=== PATIENT | female | born 1960 | race Caucasian/White ===

== ENCOUNTER 2019-05-15 11:09 | Emergency (ER) | payer BC ==
--- OUTSIDE RECORDS SUMMARY | 2019-05-15 11:11 | XMS REPORT | Clinical Summary ---
:1960 Author Organization [facility] Address [address] [place] [address] Care Team Providers Name Role Phone Adamaris Sr MD Primary Care Provider Allergies No Known Allergies Medications Medication Sig Dispensed Refills Start Date End Date Status EFFEXOR XR 75 mg 24 hr 150 mg. 0 02/11/2016 Active capsule omeprazole (PriLOSEC) 40 0 02/11/2016 Active MG capsule JANUMET 50-1,000 mg per 0 04/18/2016 Active tablet cyanocobalamin 1000 MCG Take 1,000 mcg 0 Active tablet by mouth daily. vitamin E 400 UNIT Take 400 Units 0 Active capsule by mouth daily. cholecalciferol, vitamin Take 2,000 0 Active D3, (VITAMIN D3) 2,000 Units by mouth unit capsule capsule daily. cinnamon bark 500 mg Take by mouth 0 Active capsule daily. fenofibrate micronized Take 130 mg by 0 Active (ANTARA) 130 MG capsule mouth once. gabapentin (NEURONTIN) 0 08/27/2016 Active 100 mg capsule atorvastatin (LIPITOR) 10 0 10/30/2016 Active MG tablet aspirin (ECOTRIN) 81 MG Take 81 mg by 0 Active enteric coated tablet mouth. venlafaxine XR Take 150 mg by 0 Active (EFFEXOR-XR) 150 MG 24 hr mouth. capsule [id number] Take by mouth. 0 Active [facility] Hospital, Clinic, or Other Ordered Dose Route Frequency Start Date End Date Status Facility Administered Medication sodium hyaluronate (viscosup) 30 mg IAtc once 01/03/2018 Active (ORTHOVISC) injection 30 mgIndications: Primary osteoarthritis of both knees sodium hyaluronate (viscosup) 30 mg IAtc once 10/17/2018 Active (ORTHOVISC) injection 30 mgIndications: Primary osteoarthritis of both knees Active Problems Problem Noted Date DDD (degenerative disc disease), lumbar 05/25/2017 Chronic bilateral low back pain with bilateral sciatica 05/25/2017 Primary osteoarthritis of both knees 02/12/2017 Bilateral hip pain 12/21/2016 Sacroiliac joint pain 12/21/2016 Knee pain, right 06/26/2016 Left knee pain 06/26/2016 Primary localized osteoarthrosis of right lower leg 06/26/2016 Tear of medial meniscus of left knee, current 06/26/2016 Bilateral carpal tunnel syndrome 05/05/2016 Carpal tunnel syndrome on right 05/05/2016 Carpal tunnel syndrome, left 05/05/2016 Encounters Date Type Specialty Care Team Description 11/14/2018 Office Visit Orthopedic Surgery [facility], Primary osteoarthritis of MD both knees (Primary Dx) 11/07/2018 Office Visit Orthopedic Surgery [facility], Primary osteoarthritis of MD both knees (Primary Dx) 10/27/2018 Office Visit Orthopedic Surgery [facility], Primary osteoarthritis of MD both knees (Primary Dx) 10/17/2018 Office Visit Orthopedic Surgery [facility], Primary osteoarthritis of MD both knees (Primary Dx) after 05/14/2018 Family History Medical History Relation Name Comments Cancer Father Diabetes Mother Diabetes Sister Relation Name Status Comments Father Mother Sister Social History Tobacco Use Types Packs/Day Years Used Date Light Tobacco Smoker 0 Smokeless Tobacco: Never Used Comments: one pack a week Alcohol Use Drinks/Week oz/Week Comments Yes 2 Glasses of wine 2.0 Sex Assigned at Date Recorded Not on file Job Start Date Occupation Industry Not on file Not on file Not on file Travel History Travel Start Travel End No recent travel history available. Last Filed Vital Signs Vital Sign Reading Time Taken Comments Blood Pressure - - Pulse - - Temperature - - Respiratory Rate - - Oxygen Saturation - - Inhaled Oxygen Concentration - - Weight 81.2 kg (179 lb) 10/27/2018 1:30 PM [employer] Height 172.7 cm (5' 8") 10/27/2018 1:30 PM [employer] Body Mass Index 27.22 10/27/2018 1:30 PM [employer] DES[employer] Plan of Treatment Health Maintenance Due Date Last Done Comments CERVICAL CANCER SCREENING 1981 BREAST CANCER SCREENING 2010 COLONOSCOPY SCREENING 2010 SHINGLES VACCINES (#1) 2010 INFLUENZA VACCINE 03/23/2019 06/30/2017 Procedures Procedure Name Priority Date/Time Associated Diagnosis Comments OK ARTHROCENTESIS Routine 11/14/2018 8:20 Primary Results for this ASPIR&/INJ MAJOR AM CDT osteoarthritis of procedure are in JT/BURSA W/O US both knees the results section. OK ARTHROCENTESIS Routine 11/07/2018 10:50 Primary Results for this ASPIR&/INJ MAJOR AM CDT osteoarthritis of procedure are in JT/BURSA W/O US both knees the results section. 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 after 05/14/2018 Results Large Joint Arthrocentesis: knee, Bilateral knee (11/14/2018 8:20 AM CDT) Narrative Performed At [facility] MD 11/14/20188:45 AM Large Joint Arthrocentesis: knee, Bilateral knee Supporting Documentation Indications: pain Procedure Details Location: knee - Bilateral knee Right side: Approach: lateral Right knee medications administered: 2 mL lidocaine 10 mg/mL (1 %); 2 mL sodium hyaluronate (viscosup) 30 mg/2 mL Left side: Approach: lateral Left knee medications administered: 2 mL lidocaine 10 mg/mL (1 %); 2 mL sodium hyaluronate (viscosup) 30 mg/2 mL (The patient will apply ice to the injected area today and use OTC meds as needed for injection pain. We discussed potential risks to include infection, pain, ineffectuality, fat atrophy, skin pigmentation loss, and need for more treatment.) Large Joint Arthrocentesis: knee, Bilateral knee (11/07/2018 10:50 AM CDT) Narrative Performed At [facility] MD 11/07/2018 10:44 AM Large Joint Arthrocentesis: knee, Bilateral knee Supporting Documentation Indications: pain Procedure Details Location: knee - Bilateral knee Right side: Approach: lateral Right knee medications administered: 2 mL lidocaine 10 mg/mL (1 %); 2 mL sodium hyaluronate (viscosup) 30 mg/2 mL Left side: Approach: lateral Left knee medications administered: 2 mL lidocaine 10 mg/mL (1 %); 2 mL sodium hyaluronate (viscosup) 30 mg/2 mL (The patient will apply ice to the injected area today and use OTC meds as needed for injection pain. 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
--- OUTSIDE RECORDS SUMMARY | 2019-05-15 11:11 | XMS REPORT | Clinical Summary ---
:1960 Author Organization [facility] Address [address] [place] [address] Care Team Providers Name Role Phone Adamaris Muniz Primary Care Provider Unavailable Allergies No Known Allergies Medications Medication Sig Dispensed Refills Start Date End Date Status aspirin 81 MG EC tablet Take 81 mg by 0 Active mouth daily. fenofibrate micronized Take 130 mg by 0 Active (ANTARA) 130 MG capsule mouth every morning before breakfast. atorvastatin (LIPITOR) 0 08/11/2013 Active 10 MG tablet omeprazole (PRILOSEC) 0 08/11/2013 Active 40 MG capsule SITagliptin-metFORMIN 0 04/18/2016 Active (JANUMET) 50-1,000 mg per tablet [id number] Take by mouth. 0 Active [facility] Active Problems Not on file Social History Tobacco Use Types Packs/Day Years Used Date Current Some Day Smoker Tobacco Cessation: Ready to Quit: No Alcohol Use Drinks/Week oz/Week Comments Yes Sex Assigned at Date Recorded Not on file Job Start Date Occupation Industry Not on file Not on file Not on file Travel History Travel Start Travel End No recent travel history available. Last Filed Vital Signs Not on file Plan of Treatment Not on file Results Not on fileafter 05/14/2018 Insurance Payer Benefit Plan / Subscriber ID Type Phone Address Group [employer]UE [employer] xxxxxxxxxxxx PPO [phone] [address] [employer]PP[place] [address]
--- OUTSIDE RECORDS SUMMARY | 2019-05-15 11:12 | XMS REPORT | Continuity of Care Document ---
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 019 9 [place] Transient Cerebral Problem [facility] Ischemia 017 9 Family Practice NUMBNESS Active [facility] 017 Alligator STROKE-LIKE SYMPTOMS Active [facility] 017 Alligator Diabetic Renal Disease Problem [facility] 017 9 Family Practice Mixed Anxiety and Problem [facility] Depressive Disorder 017 9 Family Practice Hypertensive Renal Problem [facility] Disease 017 9 Family Practice Gastroesophageal Problem [facility] Reflux Disease without 017 9 Family Esophagitis Practice Chronic Kidney Disease Problem [facility] Stage 3 017 9 Family Practice Mixed Hyperlipidemia Problem [facility] Due to Type 2 Diabetes 017 9 Family Mellitus Practice K57.30 - DVRTCLOS OF Active OPID LG INT W/O PERFORA 016 [place] Anxiety Resolved Problem 015 9 Maura,M H TIRR,MH OPID [place] Diabetes Resolved Problem MH 015 9 MauraM H TIRR,MH OPID [place] Hypertension Resolved Problem MH 015 9 MauraM H TIRR, OPID [place] Anxiety (finding) Resolved Problem MH OPID 015 9 [place] Diabetes mellitus Resolved Problem MH OPID (disorder) 015 9 [place] Hypertensive disorder, Resolved Problem MH OPID systemic arterial 015 9 [place] (disorder) [id number] Active Problem Data MH 015 9 migrated Chip Lorenzo from GE H TIRR,MH Centricity OPID on 04/13/15. [place] Fatigue (finding) Active Problem Data MH OPID 015 9 migrated Maura from GE [employer] on 04/13/15. Abdominal pain1 Resolved Problem Data MH 014 9 migrated Chip Lorenzo from GE H TIRR,MH Centricity OPID on 01/22/15. [place] Gastroesophageal Active Problem Data migrated from GE Centricity on 02/27/15. reflux [id number], 15 014 9 Data migrated from GE Centricity on 01/22/15. Chip Lorenzo H TIRR,MH OPID [place] Abdominal pain Resolved Problem Data OPID (finding) 014 9 migrated [place] from GE [employer] on 01/22/15. Gastroesophageal Active Problem Data migrated from GE Centricity on 02/27/15. OPID reflux disease 014 9 Data migrated from GE Centricity on 01/22/15. [place] (disorder) Neurologic disorder Active Problem Data migrated from GE Centricity on 02/27/15. MH associated with type 2 013 9 Data migrated from GE Centricity on . Chip Lorenzo diabetes , H TIRR,MH 24 OPID [place] Neurologic disorder Active Problem Data migrated from GE Centricity on 02/27/15. OPID associated with type 013 9 Data migrated from GE Centricity on 01/22/15. [place] II diabetes mellitus (disorder) Vitamin D Active Problem Data migrated from GE Centricity on 02/27/15. [id number], 38 013 9 Data migrated from GE Centricity on 01/22/15. Chip Lorenzo H TIRR,MH OPID [place] Vitamin D deficiency Active Problem Data migrated from GE Centricity on 02/27/15. OPID (disorder) 013 9 Data migrated from GE Centricity on 01/22/15. [place] Postmenopausal Active Problem Data migrated from GE Centricity on 02/27/15. state29, 30 013 9 Data migrated from GE Centricity on 01/22/15. Chip Lorenzo H TIRR,MH OPID [place] Postmenopausal state Active Problem Data migrated from GE Centricity on 02/27/15. OPID (finding) 013 9 Data migrated from GE Centricity on 01/22/15. [place] Physical examination Resolved Problem Data [id number] 013 9 migrated Chip Lorenzo from GE H TIRR, Centricity OPID on 02/27/15. [place] Physical examination Resolved Problem Data OPID procedure (procedure) 013 9 migrated Maura from GE Cent[employer]ity on 02/27/15. Allergic rhinitis2, 3, Active Problem Data migrated from GE Centricity on 02/27/15. 4 012 9 Data migrated from GE Centricity on 02/27/15. MauraChip Data migrated from GE Centricity on 01/22/15. H TIRR,MH OPID [place] Dysfunction of Resolved Problem Data eustachian tube12 012 9 migrated Chip Lorenzo from GE H TIRR,MH Centricity OPID on 03/09/15. [place] Xsjudc52, 35 Active Problem Data migrated from GE Centricity on 02/27/15. MH 012 9 Data migrated from GE Centricity on 01/22/15. Chip Lorenzo H TIRR,MH OPID [place] Allergic rhinitis Active Problem Data migrated from GE Centricity on 02/27/15. OPID (disorder) 012 9 Data migrated from GE Centricity on 02/27/15. [place] Data migrated from GE Centricity on 01/22/15. Dysfunction of Resolved Problem Data OPID eustachian tube 012 9 migrated [place] (disorder) from GE Centricity on 03/09/15. Smoker (finding) Active Problem Data migrated from GE Centricity on 02/27/15. MH OPID 012 9 Data migrated from GE Centricity on 01/22/15. [place] Urinary tract Resolved Problem Data infectious [id number] 012 9 migrated MauraM from GE H TIRR, Centricity OPID on 03/08/15. [place] Urinary tract Resolved Problem Data OPID infectious disease 012 9 migrated [place] (disorder) from GE Centricity on 03/08/15. Diverticular Active Problem Data migrated from GE Centricity on 02/27/15. , 11 012 9 Data migrated from GE Centricity on 01/22/15. [place],M H TIRR, OPID [place] [id number] Resolved Problem Data MH 012 9 migrated Chip Lorenzo from GE H TIRR, Centricity OPID on 03/08/15. [place] Diverticular disease Active Problem Data migrated from GE Centricity on 02/27/15. OPID (disorder) 012 9 Data migrated from GE Centricity on 01/22/15. [place] Otalgia (disorder) Resolved Problem Data OPID 012 9 migrated [place] from GE Centricity on 03/08/15. Hip pain16 Active Problem Data MH 011 9 migrated Maura,M from GE H TIRR, Centricity OPID on 01/22/15. [place] Hip pain (finding) Active Problem Data OPID 011 9 migrated [place] from GE Cent[employer]ity on 01/22/15. Contact dermatitis due Resolved Problem Data MH to Genus 011 9 migrated Chip Lorenzo Toxicodendron6 from GE H TIRR,MH Centricity OPID on 02/27/15. [place] Contact dermatitis due Resolved Problem Data OPID to Genus Toxicodendron 011 9 migrated Maura (disorder) from GE Centricity on 02/27/15. Mixed anxiety and Active Problem Data migrated from GE Centricity on 02/27/15. depressive riezkckt00, 010 9 Data migrated from GE Centricity on . Chip Lorenzo 22 H TIRR,MH OPID [place] Mixed anxiety and Active Problem Data migrated from GE Centricity on 02/27/15. OPID depressive disorder 010 9 Data migrated from GE Centricity on 01/22/15. [place] (disorder) Breast neoplasm Active Problem Data OPID screening (procedure) 010 9 migrated Maura from GE Cent[employer]ity on 02/27/15. Benign hypertensive Active Problem Data renal disease5 009 9 migrated Chip Lorenzo from GE H TIRR, Centricity OPID on 02/27/15. [place] Hypertensive [id number] Resolved Problem Data MH 009 9 migrated Chip Lorenzo from GE H TIRR, Centricity OPID on 01/22/15. [place] Yixizeofend89, 27 Active Problem Data migrated from GE Centricity on 02/27/15. MH 009 9 Data migrated from GE Centricity on 01/22/15. Chip Lorenzo H TIRR,MH OPID [place] Benign hypertensive Active Problem Data OPID renal disease 009 9 migrated Maura (disorder) from GE Centricity on 02/27/15. Hypertensive episode Resolved Problem Data OPID (disorder) 009 9 migrated Maura from GE Centricity on 01/22/15. Paresthesia (finding) Active Problem Data migrated from GE Centricity on 02/27/15. MH OPID 009 9 Data migrated from GE Centricity on 01/22/15. [place] History of clinical Active Problem Data MH finding in [id number] 009 9 migrated Chip Lorenzo from GE H TIRR,MH Centricity OPID on 02/27/15. [place] Idiocldgnee40, 32 Active Problem Data migrated from GE Centricity on 02/27/15. MH 009 9 Data migrated from GE Centricity on 01/22/15. Chip Lorenzo H TIRR,MH OPID [place] Past history of Active Problem Data MH OPID clinical finding 009 9 migrated [place] (context-dependent from GE category) Centricity on 02/27/15. Proteinuria (finding) Active Problem Data migrated from GE Centricity on 02/27/15. MH OPID 009 9 Data migrated from GE Centricity on 01/22/15. [place] Contact dermatitis due Resolved Problem Data MH to poison oak7 009 9 migrated Chip Lorenzo from GE H TIRR,MH Centricity OPID on 03/08/15. [place] Contact dermatitis due Resolved Problem Data OPID to poison-oak 009 9 migrated [place] (disorder) from GE Centricity on 03/08/15. Diabetic renal Active Problem Data MH disease9 009 9 migrated Chip Lorenzo from GE H TIRR,MH Centricity OPID on 01/22/15. [place] Diabetic renal disease Active Problem Data MH OPID (disorder) 009 9 migrated Maura from GE Centricity on 01/22/15. Depressive disorder8 Resolved Problem Data MH 009 9 migrated Chip Lorenzo from GE H TIRR,MH Centricity OPID on 01/22/15. [place] Depressive disorder Resolved Problem Data MH OPID (disorder) 009 9 migrated Maura from GE Centricity on 01/22/15. Fxsyzxxleqbtczrtsyea49 Resolved Problem Data migrated from GE Centricity on 02/27/15. , 20 009 9 Data migrated from GE Centricity on 01/22/15. Chip Lorenzo TIRR, OPID [place] Hypertriglyceridemia Resolved Problem Data migrated from GE Centricity on 02/27/15. OPID (disorder) 009 9 Data migrated from GE Centricity on 01/22/15. [place] [id number] Active TIRR 002 58523 X 2/46950 X Active TIRR 6/83802 X 5/96742 X 6 001 Hypercholesterolemia Active Problem 9 Chip Lorenzo TIRR, OPID [place] Calculus of OPID gallbladder without 9 [place] cholecystitis without obstruction Diverticulosis of OPID large intestine 9 [place] without perforation or abscess without bleeding Alcoholic fatty liver OPID 9 [place] Type 2 diabetes OPID mellitus without 9 [place] complications Essential (primary) OPID hypertension 9 [place] Overweight OPID 9 [place] Dietary counseling and OPID surveillance 9 [place] Family history of OPID malignant neoplasm of 9 [place] digestive organs Hypercholesterolemia Active Problem OPID (disorder) 9 [place] HIP PAIN, RIGHT Active [place] UNSPECIFIED SYMPTOMS Active [facility] SIGNS INVOLVING Alligator Medications Medication Details Route Status Patient Ordering Order Source Instructions Provider Date Effexor XR 150 mg, 2 No Longer cap, Route: Active 2016 [place] PO, Drug form: ERCAP, Daily, Dosing Weight 83.182, kg, Start date: 07/07/17 9:00:00 ROBOTICS SYSTEMS ENGINEER, Duration: 30 day, Stop date: 08/06/17 8:59:00 CSTNotes: Do not open, crush, or chew. (Same As: Effexor XR) Omeprazole 40 mg, Route: No Longer PO, Drug Active 2016 [place] form: DRC, Daily, Dosing Weight 83.182, kg, Start date: 07/07/17 9:00:00 ROBOTICS SYSTEMS ENGINEER, Duration: 30 day, Stop date: 08/06/17 8:59:00 ROBOTICS SYSTEMS ENGINEER atorvastatin 20 mg, Route: No Longer PO, Drug Active 2016 [place] form: TAB, Daily, Dosing Weight 83.182, kg, Start date: 07/07/17 9:00:00 ROBOTICS SYSTEMS ENGINEER, Duration: 30 day, Stop date: 08/06/17 8:59:00 ROBOTICS SYSTEMS ENGINEER gabapentin 100 MG 100 mg, 1 Inactive Oral Capsule cap, Route: 2017 [place] PO, Drug form: CAP, BID, Dosing Weight 83.182, kg, Start date: 07/06/17 17:00:00 ROBOTICS SYSTEMS ENGINEER, Duration: 30 day, Stop date: 08/05/17 16:59:00 CSTNotes: (Same as: Neurontin) Aspirin Enteric 81 mg=1 tab, Active Coated 81 mg oral PO, Daily, # 2017 [place] delayed release 30 tab, 0 tablet Refill(s) Protonix 40 mg, 1 tab, Inactive Route: PO, 2016 [place] Drug form: ECTAB, Daily, Start date: 07/06/17 10:00:00 ROBOTICS SYSTEMS ENGINEER, Duration: 30 day, Stop date: 08/05/17 9:00:00 CSTNotes: Tablet should not be chewed or crushed. (Same as: Protonix) Amlodipine 5 MG / 1 tab, Route: Inactive Hydrochlorothiazide PO, Drug 2017 [place] 12.5 MG / Olmesartan Form: TAB, medoxomil 40 MG Oral Dosing Weight Tablet [Tribenzor 83.182, kg, 40/5/12.5] Daily, Start date: 07/06/17 9:05:00 ROBOTICS SYSTEMS ENGINEER, Duration: 30 day, Stop date: 08/05/17 9:04:00 ROBOTICS SYSTEMS ENGINEER Aspirin 325 MG 325 mg, 1 Inactive Enteric Coated tab, Route: 2017 [place] Tablet PO, Drug form: ECTAB, Daily, Dosing Weight 84.3, kg, Start date: 07/06/17 9:00:00 ROBOTICS SYSTEMS ENGINEER, Duration: 30 day, Stop date: 08/05/17 8:59:00 CSTNotes: (Do Not Crush) Do not crush or chew. heparin 5,000 unit, 1 Inactive mL, Route: 2017 [place] SUB-Q, Drug form: INJ, Q8H, Dosing Weight 84.3, kg, (For patients weighing Notes: porcine heparin Insulin Lispro 4 unit, 0.04 No Longer mL, Route: Active 2016 [place] SUB-Q, Drug form: SOLN, Bedtime, Dosing Weight 83.182, kg, PRN Blood Glucose Results, Start date: 07/05/17 22:06:00 ROBOTICS SYSTEMS ENGINEER, Duration: 30 day, Stop date: 08/04/17 22:05:00 CSTNotes: Roll in palms of hands gently; Do not shake `vigorously. (Same as: Humalog ) "Single Patient Use Only " WASTE: F/P - Black; E - Municipal Trash Bin Stable for 28 days at room temperature. Expires in days from _Date Glucagon 1 mg, Route: No Longer IM, Drug Active 2016 [place] form: PDR/INJ, PRN, Dosing Weight 83.182, kg, PRN Blood Glucose Results, Start date: 07/05/17 21:41:00 ROBOTICS SYSTEMS ENGINEER, Duration: 30 day, Stop date: 08/04/17 21:40:00 ROBOTICS SYSTEMS ENGINEER Dextrose 50% Syringe 12.5 gm, 25 No Longer mL, Route: Active 2016 [place] IVP, Drug Form: INJ, Dosing Weight 83.182, kg, PRN, PRN Blood Glucose Results, Start date: 07/05/17 21:41:00 ROBOTICS SYSTEMS ENGINEER, Duration: 30 day, Stop date: 08/04/17 21:40:00 ROBOTICS SYSTEMS ENGINEER Insulin Lispro 5 unit, 0.05 No Longer mL, Route: Active 2016 [place] SUB-Q, Drug form: SOLN, TID-Before Meals, Dosing Weight 83.182, kg, PRN Blood Glucose Results, Start date: 07/05/17 21:41:00 ROBOTICS SYSTEMS ENGINEER, Duration: 30 day, Stop date: 08/04/17 21:40:00 CSTNotes: Roll in palms of hands gently; Do not shake `vigorously. (Same as: Humalog ) "Single Patient Use Only " WASTE: F/P - Black; E - Municipal Trash Bin Stable for 28 days at room temperature. Expires in days from _Date Saline Flush 0.9% 10 ml, Route: No Longer IVP, Drug Active 2016 [place] Form: INJ, Dosing Weight 84.3, kg, Q12H, Start date: 07/05/17 21:00:00 ROBOTICS SYSTEMS ENGINEER, Duration: 30 day, Stop date: 08/04/17 20:59:00 CSTNotes: (Same as: BD Posiflush) Docusate 100 mg, 1 No Longer cap, Route: Active 2016 [place] PO, Drug form: CAP, Q12H, Dosing Weight 84.3, kg, Start date: 07/05/17 21:00:00 ROBOTICS SYSTEMS ENGINEER, Duration: 30 day, Stop date: 08/04/17 20:59:00 CSTNotes: (Same as: Colace) (Do Not Crush) atorvastatin 80 mg, 2 tab, No Longer Route: PO, Active 2016 [place] Drug form: TAB, Bedtime, Dosing Weight 84.3, kg, Start date: 07/05/17 21:00:00 ROBOTICS SYSTEMS ENGINEER, Duration: 30 day, Stop date: 08/04/17 20:59:00 CSTNotes: (Same as: Lipitor) magnesium oxide 250 250 mg=1 tab, Active mg oral tablet PO, Daily, 0 2016 [place] Refill(s) gabapentin 100 MG 100 mg=1 cap, Active Oral Capsule PO, BID, # 90 2016 [place] cap, 1 Refill(s) Centrum Silver 1 tab, PO, Active Women's Daily, 0 2016 [place] Refill(s) atorvastatin 20 mg 20 mg=1 tab, Active oral tablet PO, Daily, 0 2017 [place] Refill(s) Saline Flush 0.9% 10 ml, Route: No Longer IVP, Drug Active 2016 [place] Form: INJ, Dosing Weight 84.3, kg, PRN, PRN Line Flush, Start date: 07/05/17 16:07:00 ROBOTICS SYSTEMS ENGINEER, Duration: 30 day, Stop date: 08/04/17 16:06:00 CSTNotes: (Same as: BD Posiflush) Ondansetron 4 mg, 2 mL, No Longer Route: IVP, Active 2016 [place] Drug form: INJ, Q8H, Dosing Weight 84.3, kg, PRN Nausea & Vomiting, Start date: 07/05/17 16:07:00 ROBOTICS SYSTEMS ENGINEER, Duration: 30 day, Stop date: 08/04/17 16:06:00 CSTNotes: (Same as: Ashley) MEDICATION WASTE Product Size: 4 mg Product Wasted: ___ mg Labetalol 10 mg, 2 mL, No Longer Route: IVP, Active 2016 [place] Drug form: INJ, Q10Min, Dosing Weight 84.3, kg, PRN Hypertension, For SBP > 180 mmHg and/or DBP > 105 mmHg, Priority: Routine, Start date: 07/05/17 16:07:00 ROBOTICS SYSTEMS ENGINEER, Duration: 30 day, Stop date: 08/04/17 16:06:00 CSTNotes: (Same as: Normodynpat Trandate) Push over 2 minutes Give bolus over 2-3 minutes. atorvastatin 20 MG atorvastatin Active [facility] Oral Tablet 20 mg tablet [facility] Take 1 tablet Practice every day by oral route. 24 HR venlafaxine Effexor XR [facility] 150 MG Extended 150 mg Family Release Oral Capsule capsule,exten Practice [Effexor] ded release 1 PO QDay 24 HR venlafaxine 75 Effexor XR 75 [facility] [place] MG Extended Release mg Family Oral Capsule capsule,exten Practice [Effexor] ded release TAKE ONE CAPSULE BY MOUTH DAILY. Metformin Janumet 50 [facility] hydrochloride 1000 mg-1,000 mg Family MG / sitagliptin 50 tablet Take 1 Practice MG Oral Tablet tablet twice [Janumet] a day by oral route with meals. Amlodipine 5 MG / olmesartan 40 Active [facility] Hydrochlorothiazide mg-amlodipine Family 12.5 MG / Olmesartan 5 Practice medoxomil 40 MG Oral mg-hydrochlor Tablet othiazide 12.5 mg tablet TAKE 1 TABLET BY MOUTH EVERY DAY Omeprazole 40 MG omeprazole 40 [facility] Delayed Release Oral mg Family Capsule capsule,delay Practice ed release TAKE ONE CAPSULE BY MOUTH DAILY OneTouch Delica OneTouch Active [facility] Lancets 33 gauge Delica Family Lancets 33 Practice gauge OneTouch Ultra Test [facility] strips Ultra Test Family strips Practice Allergies, Adverse Reactions, Alerts Substance Category Reaction Severity Reaction Status Date Comments Source type Reported angiotensin Assertion Drug Active Data OPID converting allergy 1 migrated [place] enzyme from GE inhibitors<s Centricity up>1</sup> on 03/21/15. Originally documented as CONG INHIBITORS. cough Cong Allergy to [facility] Inhibitors substance 7 Family Practice No Known Assertion Drug OPID Medication allergy [place] Allergies Immunizations Immunization Date Site Status Last Comments Source Given Updated Influenza, completed [facility] injectable, MDCK, 7 Family quadrivalent Practice diphtheria/pertuss Left completed GE Result is, acel/tetanus 3 Deltoid Comment: Maura adult<sup>1</sup> adacel TIRR, [[id number]]. OPID Migrated from [place] OBS ; Data migrated from GE Centricity on 09/30/2015. Tdap completed [facility] 3 Family Practice pneumococcal Right completed GE Result 23-valent 2 Deltoid Comment: [place] vaccine<sup>2</sup pneumovax. TIRR, > Migrated from OPID OBS ; Data [place] migrated from GE [employer] on 09/30/2015. pneumococcal completed [facility] polysaccharide 2 Family PPV23 Practice Results Order Name Results Value Reference Date Interpretation Comments Source Range CHEM PANEL Creatinine 0.84 0.50 - 07/06 Lvl 1.40 [place] CHEM PANEL Potassium Lvl 4.4 3.5 - 5.1 07/06 [place] CHEM PANEL CO2 29 24 - 32 07/06 [place] CHEM PANEL Sodium Lvl 138 135 - 145 07/06 [place] CHEM PANEL Chloride Lvl 103 95 - 109 07/06 [place] CHEM PANEL AGAP 10.4 10.0 - 07/06 20.0 [place] CHEM PANEL eGFR 79 07/06 Result Comment: The [place] eGFR is calculated using the CKD-EPI formula. In most young, healthy individuals the eGFR will be >90 mL/min/1.73m2 . The eGFR declines with age. An eGFR of 60-89 may be normal in some populations, particularly the elderly, for whom the CKD-EPI formula has not been extensively validated. Use of the eGFR is not recommended in the following populations:< br/>
Alondra viduals with unstable creatinine concentration s, including patients and those with serious co-morbid conditions.<b r/>
Patie nts with extremes in muscle mass or diet.

The data above are obtained from the National Kidney Disease Education Program (NKDEP) which additionally recommends that when the eGFR is used in patients with extremes of body mass index for purposes of drug dosing, the eGFR should be multiplied by the estimated BMI. CHEM PANEL Calcium Lvl 9.4 8.5 - 10.5 07/06 [place] CHEM PANEL BUN 12 7 - 22 07/06 [place] CHEM PANEL Glucose Lvl 174 70 - 99 07/06 [place] CHEM PANEL Globulin 3.7 2.7 - 4.2 07/05 [place] CHEM PANEL B/C Ratio 12 6 - 25 07/05 [place] CHEM PANEL AGAP 11.4 10.0 - 07/05 MH 20.0 [place] CHEM PANEL A/G Ratio 1.1 0.7 - 1.6 07/05 [place] CHEM PANEL eGFR 67 07/05 Result Comment: The [place] eGFR is calculated using the CKD-EPI formula. In most young, healthy individuals the eGFR will be >90 mL/min/1.73m2 . The eGFR declines with age. An eGFR of 60-89 may be normal in some populations, particularly the elderly, for whom the CKD-EPI formula has not been extensively validated. Use of the eGFR is not recommended in the following populations:< br/>
Alondra viduals with unstable creatinine concentration s, including patients and those with serious co-morbid conditions.<b r/>
Patie nts with extremes in muscle mass or diet.

The data above are obtained from the National Kidney Disease Education Program (NKDEP) which additionally recommends that when the eGFR is used in patients with extremes of body mass index for purposes of drug dosing, the eGFR should be multiplied by the estimated BMI. CHEM PANEL Glucose Lvl 234 70 - 99 07/05 [place] CHEM PANEL BUN 11 7 - 07/05 [place] CHEM PANEL Chloride Lvl 99 95 - 109 07/05 [place] CHEM PANEL Potassium Lvl 4.4 3.5 - 5.1 07/05 [place] CHEM PANEL Sodium Lvl 134 135 - 145 07/05 [place] CHEM PANEL Creatinine 0.95 0.50 - 07/05 MH Lvl 1.40 [place] CHEM PANEL ALANINE 38 0 - 65 07/05 AMINO [place] ASE CHEM PANEL Albumin Lvl 4.0 3.5 - 5.0 07/05 [place] CHEM PANEL Alk Phos 57 39 - 136 07/05 [place] CHEM PANEL Bili Total 0.5 0.2 - 1.3 07/05 [place] CHEM PANEL ASPARTATE 21 0 - 37 07/05 [place] CHEM PANEL Total Protein 7.7 6.4 - 8.4 07/05 [place] CHEM PANEL Calcium Lvl 10.3 8.5 - 10.5 07/05 [place] CHEM PANEL CO2 28 24 - 32 07/05 [place] HEMATOLOGY MPV 7.2 7.4 - 10.4 07/05 [place] HEMATOLOGY MCV 71.1 80.0 - 07/05 98.0 [place] HEMATOLOGY MCH 22.6 27.0 - 07/05 31.0 [place] HEMATOLOGY RDW 16.0 11.5 - 07/05 14. [place] HEMATOLOGY MCHC 31.7 32.0 - 07/05 36.0 [place] HEMATOLOGY Platelet 350 133 - 450 07/05 [place] HEMATOLOGY WBC X 10x3 9.7 3.7 - 10.4 07/05 [place] HEMATOLOGY RBC X 10x6 5.20 4.20 - 07/05 5.40 [place] HEMATOLOGY Hct 36.9 36.0 - 07/05 MH 48.0 [place] HEMATOLOGY Hgb 11.7 12.0 - 07/05 16.0 [place] HEMATOLOGY Microcyte 2+ None Seen 07/05 *ABN* /2016 [place] (07/05/17 10:51 AM) HEMATOLOGY Basophils # 0.1 0.0 - 0.2 07/05 [place] HEMATOLOGY Lymphocytes 21.6 20.0 - 07/05 MH 40.0 [place] HEMATOLOGY Monocytes 7.8 2.0 - 12.0 07/05 [place] HEMATOLOGY Eosinophils 0.2 0.0 - 4.0 07/05 [place] HEMATOLOGY Basophils 0.5 0.0 - 1.0 07/05 [place] HEMATOLOGY Segs-Bands # 6.8 1.5 - 8.1 07/05 [place] HEMATOLOGY Lymphocytes # 2.1 1.0 - 5.5 07/05 [place] HEMATOLOGY Monocytes # 0.8 0.0 - 0.8 07/05 [place] HEMATOLOGY Segs 69.9 45.0 - 07/05 MH 75.0 [place] LIPIDS CHD Risk 3.04 3.90 - 07/05 5.80 [place] LIPIDS VLDL 65 07/05 [place] LIPIDS LDL 51 <=99 mg/dL 07/05 (Calculated) /2016 [place] LIPIDS HDL 57 >=61 mg/dL 07/05 [place] LIPIDS Chol 173 <=199 07/05 mg/dL [place] LIPIDS Trig 323 <=149 07/05 mg/dL [place] SPECIAL Hgb A1C 8.9 <=5.6 % 07/05 CHEMISTRY /2016 [place] URINE AND UA Protein Negative Negative 07/05 STOOL (07/05/17 10:51 AM) [place] URINE AND UA Glucose 250 mg/dL Negative 07/05 [facility] mg/dL [place] URINE AND UA Blood Negative Negative 07/05 [facility] (07/05/17 10:51 AM) [place] URINE AND UA 0.2 0.1 - 1.0 07/05 [facility] Urobilinogen /2016 [place] URINE AND UA Nitrite Negative Negative 07/05 [facility] (07/05/17 10:51 AM) /2016 [place] URINE AND UA WBC 0-2 /HPF None Seen 07/05 STOOL /HPF /2016 [facility] [facility] URINE AND UA Sq Epi Few /LPF Few /LPF 07/05 STOOL /2016 [facility] URINE AND UA Ketones Negative Negative 07/05 STOOL *NA* /2016 [place] (07/05/17 10:51 AM) URINE AND UA Bili Negative Negative 07/05 STOOL *NA* /2016 [place] (07/05/17 10:51 AM) URINE AND UA Leuk Est Negative Negative 07/05 [facility] (07/05/17 10:51 AM) [facility] URINE AND UA Spec Grav <=1.005 <=1.030 07/05 STOOL *NA* [facility] [facility] (07/05/17 10:51 AM) URINE AND UA Color Yellow Yellow 07/05 STOOL *NA* [facility] (07/05/17 10:51 AM) URINE AND UA Turbidity Clear Clear 07/05 [facility] (07/05/17 10:51 AM) [place] URINE AND UA pH 6.0 5.0 - 8.0 07/05 STOOL [facility] Pathology Reports No Data Provided for This Section Diagnostic Reports Report Value Date Source Abdomen complete US PROCEDURE: Abdominal Ultrasound. 09/22/2018 JENNIFER Lorenzo Clinical Indication: Cholelithiasis. Comparison: Abdominal ultrasound 12/12/2015. TECHNIQUE: Grayscale and limited color sonographic evaluation of the abdomen was performed with standard technique. FINDINGS: LIVER: Normal parenchymal echotexture. The main portal vein appears patent and demonstrates hepatopetal flow. BILE DUCTS: The intrahepatic and extrahepatic bile ducts are not dilated with the common bile duct measuring 5 mm. GALLBLADDER: There is a 2 cm echogenic focus with distal acoustic shadowing in the lumen of the gallbladder consistent with cholelithiasis. No gallbladder wall thickening or pericholecystic fluid is observed. PANCREAS: The visualized pancreas appears unremarkable. SPLEEN: The spleen is unremarkable and measures 12.1 cm. KIDNEYS: The right kidney measures 10.3 cm. The left kidney measures 10.8 cm. There is normal renal contour and morphology, with normal parenchymal echotexture. There is no hydronephrosis. AORTA AND INFERIOR VENA CAVA: Visualized portions appear unremarkable. ASCITES: There is no abdominal ascites. IMPRESSION: 1. Findings consistent with cholelithiasis. SL: [id number] Neck wo contrast MRA MRA NECK: 07/05/2017 [facility] HISTORY: Left lower extremity weakness. TECHNIQUE: Axial 2-D and 3-D psub-uc-[id number] acquisitions were done without contrast. 3-D MIP reconstructions were done. Stenosis measurements are done according to NASCET criteria. FINDINGS: There is no significant cervical carotid or vertebral stenosis. There is a dominant right vertebral artery with a smaller caliber left vertebral artery. IMPRESSION: No significant cervical carotid or vertebral stenosis. 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 3D reconstructed images were created. FINDINGS: The petrous, cavernous, ophthalmic and supraclinoid portions of the bilateral internal carotid arteries have normal caliber. The A1 and A2 segments of the bilateral anterior cerebral arteries are unremarkable. Bilateral middle cerebral arteries and its proximal branches have normal caliber. Bilateral vertebral arteries, basilar artery, and posterior cerebral arteries are unremarkable. Posterior communicating arteries are not visualized. The distal right vertebral artery is dominant which is normal variant. There is no aneurysm or vascular malformation. Extensive opacification of the mastoid air cells. IMPRESSION: 1. Grossly normal washoe of [place]. 2. No definite cerebral aneurysm detected. 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 COMPARISON: CT head of 07/05/2017. TECHNIQUE: Multiplanar, mutisequence MRI of the brain without contrast. FINDINGS: Diffusion weighted images demonstrate no focal signal abnormality. There are a few scattered nonspecific foci of T2/FLAIR signal abnormality likely reflecting minimal chronic small vessel ischemic change. No acute intracranial hemorrhage detected. The ventricles are no rmal in size and symmetric. No extra-axial fluid collection identified. Taylor- white distinction is preserved. No mass lesion or midline shift detected. Prominent ossification of the falx. The intracranial arterial and venous structures demonstrate normal flow voids. Mild mucosal thickening of the ethmoid air cells. Small inferior left maxillary mucous retention cysts or polyps are present. Underpneumatized mastoid air cells. IMPRESSION: 1. No definite acute infarct or intracranial hemorrhage detected. 2. Minimal chronic small vessel ischemic change. SL: JNGUYEN-PC Brain wo contrast CT Addendum: As per protocol, the study was over read. I agree with the initial assessment. 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 CT DLP; 914.90 MGY-CM; Comparison: Brain magnetic resonance imaging 03/12/2016 TECHNIQUE: CT images were obtained from the foramen magnum to the vertex without the use of intravenous contrast on a multidetector CT. Coronal and sagittal reconstructions were obtained. FINDINGS: BRAIN PARENCHYMA: There are normal taylor-white interfaces. No evidence for subarachnoid, intraparenchymal or intraventricular hemorrhage. No significant extra-axial fluid collection, mass effect or shif t. No evidence for an acute infarction. No mass lesions identified about the brain. Prominent calcification within the anterior falx which is unchanged from magnetic resonance imaging appearance. No subjacent mass effect or cerebral edema. Likely incidental finding. VENTRICLES: Ventricles and sulci are within normal limits for the patient's age. ORBITS, MASTOIDS AND PARANASAL SINUSES: The visualized orbits and paranasal sinuses are unremarkable. The mastoid air cells are clear. SKULL: There are no osseous abnormalities. If there is further concern for intracranial pathology or acute stroke, MRI of the brain may be performed for complete assessment. IMPRESSION: No new or acute intracranial finding. SL: [id number] Spine lumbar 2 or 3 Study: Lumbar spine, 2 views 07/05/2017 [facility] views DX Clinical Indication: - left leg paresthesia Comparison: None FINDINGS: Multiple views of the lumbar spine show 5 nonrib-bearing lumbar vertebra. No acute compression fracture is seen. Grade 1 retrolisthesis of L2 over L3 by 3 mm is seen. Grade 1 anterolisthesis o f L5 over S1 by 5 mm is noted. Mild levoscoliotic convex curvature of the lumbar spine is seen. Mild marginal osteophytes throughout the lumbar spine are noted. Moderate-severe disc height loss at L1-L2 and L2-L3 is seen with vacuum disc phenomena at L2-L3, compatible with moderate-severe degenerative disc disease. Mild to moderate degenerative disc disease of the remaining lumbar spine is seen. Sever e facet arthrosis in the lower lumbar spine is noted. IMPRESSION: Advanced multilevel degenerative changes of the lumbar spine without acute bony abnormality. 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 There is mild mass effect on the parasagittal right frontal lobe, without vasogenic edema. The white matter is normal in signal. There is no evidence of acute vascular insults, intra- axial space occupying lesions, hemorrhage, hydrocephalus, midline shift, or extra-axial fluid collections. No cortical-based, supr asellar, craniocervical, enhancing, or bone abnormalities are seen. IACs: No abnormalities are seen in the internal auditory canals, cerebellopontine angle cisterns, or in the brainstem. There appears to be faint enhancement of the vestibules and semicircular canals on both sides, right more than left. IMPRESSION: 1. Enhancement of the bilateral labyrinthine structures, right more than left , suggests labyrinthitis. Intralabyrinthine schwannomas are less likely. 2. Falx ossification, resulting in mild mass effect on the parasagittal right frontal lobe. There is no vasogenic edema. This finding is of uncertain clinical significance. SL:16 Abdomen complete US Abdomen complete US 12/12/2015 ROBI Lorenzo TECHNIQUE: Grayscale and color Doppler images of the abdomen were performed with a curvilinear transducer. Static images are submitted for review. CLINICAL HX: Abd pain; dyspepsia, left-sided abdominal pain COMPARISON: None FINDINGS: LIVER AND SPLEEN: There is diffuse heterogeneous increase in echogenicity of the liver suggestive of fatty infiltration and/or nonspecific hepatocellular disease. No focal hepatic lesion is visualized. Spleen is normal in size. GALL BLADDER AND BILE DUCTS: Solitary nonmobile gallstone is noted near the neck of the gallbladder. No gallbladder wall thickening. CBD measures 5 mm. PANCREAS: Pancreas is largely obscured by bowel gas. Visualized portion of the pancreas is unremarkable. KIDNEYS: The kidneys are comparable in size and reveal no gross masses or any evidence for hydronephrosis. Maximal sagittal diameter of the right kidney is 10.3 cm and the left kidney is 11.4 cm. VASCULAR: Midline structures are partially obscured due to bowel gas. Visualized portion of the aorta and IVC are unremarkable. ASCITES: No free fluid is present in the upper abdomen. No significant effusion is noted on either side. IMPRESSION: Cholelithiasis. There is diffuse heterogeneous increase in echogenicity of the liver suggestive of fatty infiltration and/or nonspecific hepatocellular disease. No other significant sonographic abnormality is noted in the abdomen. : [id number] Consultation Notes No Data Provided for This Section Discharge Summaries No Data Provided for This Section History and Physicals No Data Provided for This Section Vital Signs Vital Sign Value Date Comments Source Diastolic (mm Hg) 86 10/25/[address] [facility] Height 67 10/25/[address] [facility] Systolic (mm Hg) 124 10/25/[address] [facility] Weight 180 10/25/[address] [facility] Temperature Oral (F) 98.2 F 07/06/2017 [facility] Systolic (mm Hg) 142 07/06/2017 [facility] Diastolic (mm Hg) 89 07/06/2017 [facility] Respitory Rate 16 07/06/2017 [facility] Heart Rate 63 07/06/2017 [facility] Respitory Rate 18 07/06/2017 [facility] Temperature Oral (F) 98.8 F 07/06/2017 [facility] Respitory Rate 18 07/06/2017 [facility] Heart Rate 66 07/06/2017 [facility] Systolic (mm Hg) 123 07/06/2017 [facility] Diastolic (mm Hg) 80 07/06/2017 [facility] Systolic (mm Hg) 117 07/06/2017 [facility] Diastolic (mm Hg) 70 07/06/2017 [facility] Heart Rate 64 07/06/2017 [facility] Temperature Oral (F) 97.6 F 07/06/2017 [facility] Weight 83.182 07/05/2017 [facility] BMI Calculated 27.88 07/05/2017 [facility] Height 172.72 cm 07/05/2017 [facility] Weight 84.3 07/05/2017 [facility] Encounters Location Location Encounter Encounter Reason Attending ADM DC Status Source Details Type Number For Provider Date Date Visit Outpatient [id number] HIP ADAMARIS 08/18 08/18 Active [facility] PA[facility], REMBERTO /2010 [place] [facility] Outpt Diag [id number] Adamaris 04/02 04/03 [facility] Remberto /2013 [facility] Outpt Diag [id number] Adonis 12/11 12/12 [facility] 2 [place] [facility] Outpt Diag [id number] Rhonda 03/12 03/13 [facility] 3 Madelyn /2015 [facility] Observation [id number] Renetta 07/05 07/06 [facility] [address] [facility]ring [id number] Brian Gottlieb 11/12 12/12 [facility] [id number] Brian Gottlieb 12/24 01/23 [facility] Outpt Diag [id number] Adonis 09/22 09/23 [facility] 4 [facility] [place] - Adamaris O [id number] Adamaris 10/25 [facility], [id number] [facility] : [id number] [address], [place] [address], Ph. Procedures Procedure Code Date Perfomer Comments Source Colonoscopy 08/10/[address] [facility] Orthopedic Surgery 08/23/[address] [facility] Assessment and Plan Assessment and Plan Date Source Extracted from:Title: Teleneurology Consultation--ROUTINE 07/06/2017 [facility] Author: Candis Chong MD Date: 07/06/17 [facility] NEUROLOGY - ROUTINE CONSULTATION Date of Consult: 07/06/17 CC: Numbness in left leg HISTORY OF PRESENT ILLNESS: Patient is a 56 yr old with a past medical history sig for DMII, HTN, HLD, depression who p/w left leg numbness while in the shower and then left facial numbness then she developed a right sided PRUITT. Sh e went to [facility] and rec MRI she declined then left the ED and noted then memory issues and left sided heaviness so reported [facility] The numbness does not affect her walking. Numbness/sensory just in her left bermeo and calf area. The left facial numbness has resolved PRUITT also resolved. NO recnet trauma, or illness, no urinary she have a short bout of loose stools last Wednesday, now resolved. She also c/o blurry vison as well. No rashes. NO knee pain but some tightness in left bermeo area. PAST MEDICAL HISTORY: HTN, HLD, DMII PAST SURGICAL HISTORY: CTS b/l Right Knee surgery SOCIAL HISTORY: NO t/a/d HOME MEDS: See [facility] IN-PATIENT MEDS: Scheduled Meds (10): 07/06/17 9:05 amlodipine/hydrochlorothiazide/olmesartan (Tribenzor 5 mg-12.5 mg -40 mg oral tablet) 1 tab PO Daily 07/06/17 9:00 aspirin (aspirin 325 mg tablet, enteric coated) 325 mg PO Daily 07/05/17 21:00 atorvastatin 80 mg PO Bedtime 07/07/17 9:00 atorvastatin 20 mg PO Daily 07/05/17 21:00 docusate 100 mg PO Q12H 07/06/17 17:00 gabapentin (gabapentin 100 mg oral capsule) 100 mg PO BID 07/06/17 0:00 heparin 5,000 unit SUB-Q Q8H 07/07/17 9:00 omeprazole 40 mg PO Daily 07/05/17 21:00 sodium chloride (Saline Flush 0.9%) 10 ml IVP Q12H 07/07/17 9:00 venlafaxine (Effexor XR) 150 mg PO Daily PHYSICAL EXAM: Vitals Tmp(F) Tmp(C) Ttype BP MAP Pulse RR SpO2 FIO2 ETCO2 07/06 08:00 98.2 36.78 oral 142/89 --- 63 16 99 --- --- 07/06 07:02 ---- ---- ---- ----- --- --- 18 100 21 % --- 07/06 03:47 98.8 37.11 oral 123/80 --- 66 18 99 --- --- 07/05 23:25 97.6 36.44 oral 117/70 --- 64 18 99 --- --- 07/05 20:00 98.1 36.72 oral 121/76 --- 70 20 100 -- - --- 24 Hr Tmax: 98.8F (37.11c) at 07/06 03:47 24 Hr Tmin: 97.6F (36.44c) at 07/05 23:25 36 Hr Tmax: 98.8F (37.11c) at 07/06 03:47 36 Hr Tmin: 97.6F (36.44c) at 07/05 23:25 Vital Signs are the last 5 in the past 48 hours. Weights are the last 5 in 60 days, plus initial. NEURO: AAO x 3 , speech is fluent, able to repeat, follow commands and name EOMI, VFFTC, Face=, sensation intact Motor - RUE 5/5 RLE 5/5 LUE 5/5 LLE 5/5 Sensation- intact to light touch, except in outer portion of left leg and medial calf area Coordination: Normal FTN and HTS, no ataxia noted LABS: LDL: 51 HgbA1c: 8.9 DIAGNOSTIC TESTS: MRI Brain: 1. No definite acute infarct or intracranial hemorrhage detected. 2. Minimal chronic small vessel ischemic change. MRA Head and Neck: 1. Grossly normal washoe of [place]. 2. No definite cerebral aneurysm detected. No significant cervical carotid or vertebral stenosis. ASSESSMENT: 56 yr old with CV risk factors p/w left sided numbness and PRUITT, MRI neg for ischemic stroke, suspect perpheral nerve issue PLAN --stable to d/c home with outpatient neurology follow up Refer to Dr. Brian Dang For Follow Up; may need EMG/NCS [facility] Neurology [id number] [facility] [address] [address] Thank you for allowing me to participate in the care of this patient. Please feel free to call with questions. Candis Chong MD Traffic Line Painter of Neurology [facility] Call Center: [phone] Extracted from:Title: Clinical Document Author: Renetta Garg MD Date: 07/05/17 P History and Physical [facility] Renetta Garg MD CC: stroke-like symptoms HPI: 56y/o W w/ DM II, HTN, HLD, depression, hearing impairment, knee OA, and tobacco use, presenting w/ stoke-like symptoms. 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 She also at the time noted L- facial tingling/numbness. The following day she had a R-sided headache and felt her balance was "off." She went to [facility] ER and inpatient stay for MRI brain was recommended however, declined. Since then she has been having memory deficits, fatigue, and LLE feels heavy. L- face also still feels "abnormal," so she decided to present to ED for evaluation /MRI. ROS:A 14-point ROS completed and negative, except as stated in HPI. PMH: As stated in HPI PSH: -carpel tunnel release -Knee surgery SH: Denies ETOH/illicit/tobacco FH: -Mom: DM, CVA -Brother w/ MR Allergies (1) Active Reaction NKDA None documented Outpatient meds: please refer to office technician reconciliation sheet Medications (8) Active Scheduled: (5) aspirin 325 mg ECT 325 mg 1 tab, PO, Daily atorvastatin 40mg tab 80 mg 2 tab, PO, Bedtime docusate sodium 100 mg CAP 100 mg 1 cap, PO, Q12H heparin 5000 unit/1 ml INJ VL 5,000 unit 1 mL, SUB-Q, Q8H sodium chloride 0.9% 10 ml flush syr BD 10 ml, IVP, Q12H Continuous: (0) PRN: (3) labetalol 20 mg/4 ml inj 10 mg 2 mL, IVP, Q10Min ondansetron 4 mg/2ml INJ VL 4 mg 2 mL, IVP, Q8H sodium chloride 0.9% 10 ml flush syr BD 10 ml, IVP, PRN Physical exam: Vitals Tmp(F) Pulse BP RR SpO2 FIO2 07/05 16:09 98.2 84 157/102 18 99 --- 07/05 13:03 ---- 86 113/79 18 99 --- 07/05 10:29 98.2 82 164/99 18 100 --- 24 Hr Tmax: 98.2F (36.78c) at 07/05 16:09 Vital Signs are the last 5 in the past 48 hours. I&O Record In Out Bal 24hr Tot 0 0 0 24hr Tot 0 0 0 General - NAD, AO HEENT:- PERRLA, EOM intact, sclera anicteric, MMM, No lymphadenopathy Cardiovascular - RRR no m/r/g, no JVD, no carotid bruits Lungs - Clear to auscltation b/l, no use of acessory muscles, no crackles or wheezes. Skin - No rashes, skin warm and dry, no erythematous areas Abdomen - Normal bowel sounds, abdomen soft, nontender, and nondistended Genitourinary - Genital exam deferred Rectal - Rectal exam deferred Extremeties - No edema, cyanosis or clubbing Musculoskeletal - normal range of motion, no swollen or erythematous joints, no point tenderness. Neurological - CN 2-12 grossly intact, no sensory or motor deficits Labs Most Recent Results Previous Results Previous Results Previous Results WBC 9.7 (JUL 05) -- -- -- Hgb L 11.7 (JUL 05) -- -- -- Hct 36.9 (JUL 05) -- -- -- Plt 350 (JUL 05) -- -- -- Na L 134 (JUL 05) -- -- -- K 4.4 (JUL 05) -- -- -- CO2 28 (JUL 05) -- -- -- Cl 99 (JUL 05) -- -- -- Cr 0.95 (JUL 05) -- -- -- BUN 11 (JUL 05) -- -- -- Glucose Random H 234 (JUL 05) -- -- -- Ca 10.3 (JUL 05) -- -- -- Assessment and Plan: 56y/o W w/ DM II, HTN, HLD, depression, hearing impairment, knee OA, and tobacco use, presenting w/ stoke-like symptoms. Plan: -Admit for observation and further eval -Neurology on board. appreciate assistance w/ management -CT brain negative -F/u MRA/MRI brain/neck pending -F/u 2D ECHO -Risk stratify: HA1c, lipids, TSH -S/p smoking cessation counseling -Replete lytes prn -PT/OT/SP eval -Diet: ADA -GI ppx: not indicated -DVT ppx:heparin -Dispo: pending further clinical improvement/evaluation [facility] Inpatient Providers Hospitalist Renetta Garg MD Plan of Care No Data Provided for This Section Social History Social History Date Source Social History TypeResponse 07/05/2017 ROBI Lorenzo Smoking Status Current some day smoker; Type: Cigarettes; Ready to change: No; Concerns about tobacco use in household: No; Exposed at work; Cigarette Smoking Last 365 Days Yes; Reg Smoking Cessation Counseling No entered on: 07/05/17 Social History TypeResponse 07/05/2017 [facility] Smoking Status Current some day smoker; Type: Cigarettes; Ready to change: No; Concerns about tobacco use in household: No; Exposed at work; Cigarette Smoking Last 365 Days Yes; Reg Smoking Cessation Counseling No entered on: 07/05/17 Social History TypeResponse 07/05/2017 Maura Smoking Status Current some day smoker; Type: Cigarettes; Ready to change: No; Concerns about tobacco use in household: No; Exposed at work; Cigarette Smoking Last 365 Days Yes; Reg Smoking Cessation Counseling No Smoking Status 12/15/2016 [facility] Practice Former Smoker Family History No Data Provided for This Section Advance Directives No Data Provided for This Section Functional Status No Data Provided for This Section
--- OUTSIDE RECORDS SUMMARY | 2019-05-15 11:13 | XMS REPORT ---
:1960 [facility] Address [address] [place] [address] Dr. Liu [address] [place] [id number] Care Team Providers Name Role Phone Unavailable Unavailable Unavailable Problems This patient has no known problems. Allergies, Adverse Reactions, Alerts This patient has no known allergies or adverse reactions. Medications This patient has no known medications. Results Test Description Test Time Test Comments Text Results Atomic Results Result Comments CT, BRAIN, WITHOUT CONTRAST 2017-07-02 15:02:[address] head without contrast 07/02/2017 3:01 PM CLINICAL HISTORY: L leg numbness for one day TECHNIQUE: Axial noncontrast CT images through the head were obtained. This examination was performed according to our departmental dose optimization program, which includes automated exposure control, adjustment of the mA and/or kV according to patient size, and/or use of iterated reconstruction technique. COMPARISON: 10/29/2013 FINDINGS: There is no hemorrhage, extra-axial collection, mass, hydrocephalus, or midline shift. There is no CT evidence for cerebral infarction. The visualized paranasal sinuses and mastoid air cells are well aerated. The skull is intact. IMPRESSION: No intracranial hemorrhage or mass effect. If concern for acute pathology persists, further evaluation with MRI is recommended. Signed: Bob Desouza Verified Date/Time: 07/02/2017 15:02:39 Reading Location: [facility] Radiology Reading Room
--- NOTE | 2019-05-15 12:29 | RAD REPORT ---
EXAM DESCRIPTION: RAD -Hand Left 3 View - 05/15/2019 12:04 pm CLINICAL HISTORY: Left hand pain status post injury FINDINGS: No fracture or dislocation is seen. Calcification triangular fibrocartilage
--- NOTE | 2019-05-15 12:44 | ER ---
Nurse's Notes [facility] Name: Tracy Carballo Age: 58 yrs Sex: Female : 1960 Arrival Date: 05/15/2019 Time: 11:13 Bed 8 Private MD: Diagnosis: Sprain of other part of left wrist and hand Presentation: 05/15 11:16 Presenting complaint: Patient states: FALL ONTO LEFT HAND Y/D, NOW WITH HAND SWELLING. bp Transition of care: patient was not received from another setting of care. Onset of symptoms is unknown. Risk Assessment: Do you want to hurt yourself or someone else? Patient reports no desire to harm self or others. Initial Sepsis Screen: Does the patient meet any 2 criteria? No. Patient's initial sepsis screen is negative. Does the patient have a suspected source of infection? No. Patient's initial sepsis screen is negative. Care prior to arrival: None. 11:16 Method Of Arrival: Ambulatory bp 11:16 Acuity: MIKE 3 bp Historical: - Allergies: 11:19 No Known Allergies; bp - Home Meds: 11:19 Effexor XR 150 mg Oral cp24 1 cap once daily [Active]; atorvastatin 20 mg oral tab bp [Active]; Janumet 50-1,000 mg oral tab 1 tab 2 times per day [Active]; omeprazole 40 mg Oral cpDR 1 cap once daily [Active]; olmesartan oral oral [Active]; - PMHx: 11:19 Hypertension; bp - Immunization history:: Adult Immunizations up to date. - Social history:: Smoking status: Patient/guardian denies using tobacco. - Ebola Screening: : No symptoms or risks identified at this time. Screenin:00 Abuse screen: Denies threats or abuse. Denies injuries from another. Nutritional jl7 screening: No deficits noted. Tuberculosis screening: No symptoms or risk factors identified. Fall Risk Fall in past 12 months (25 points). Total Blanco Fall Scale indicates Low Risk Score (25-44 pts). Fall prevention measures have been instituted. Side Rails Up X 2 Placed close to Nursing Station Frequent Obs/Assesments occuring As available Patient and Family Educated on Fall Prevention Program and strategies. Assessment: 12:00 General: Appears in no apparent distress. uncomfortable, Behavior is calm, cooperative, jl7 appropriate for age. Pain: Complains of pain in left hand Pain does not radiate. Pain currently is 4 out of 10 on a pain scale. Quality of pain is described as throbbing, Pain began 1 day ago. Is continuous. Neuro: Level of Consciousness is awake, alert, obeys commands, Oriented to person, place, time, situation. Cardiovascular: Patient's skin is warm and dry. Respiratory: Airway is patent Respiratory effort is even, unlabored, Respiratory pattern is regular, symmetrical. Derm: Skin is pink, warm \T\ dry. Musculoskeletal: Swelling present in left hand. 13:27 Reassessment: Pt discharged, left her watch on the bed. I called pt and she will return jl7 to pick it up from the java front end web developer. Watch placed in bad with pt label on it at this time. Vital Signs: 11:19 BP 150 / 90; Pulse 70; Resp 16; Temp 98; Pulse Ox 100% ; Weight 73.48 kg; Height 5 ft. bp 8 in. (172.72 cm); 12:30 BP 148 / 89; Pulse 69; Resp 16 S; Pulse Ox 100% on R/A; jl7 11:19 Body Mass Index 24.63 (73.48 kg, 172.72 cm) bp ED Course: 11:13 Patient arrived in ED. mr 11:17 Triage completed. bp 11:19 Arm band placed on. bp 11:23 Levi Ellington PA is PHCP. jmm 11:23 Sushil Krause MD is Attending Physician. m 11:29 Arpita Nieves, SRAVANTHI is Primary Nurse. jl7 12:00 Patient has correct armband on for positive identification. Bed in low position. Call jl7 light in reach. Side rails up X 1. Pulse ox on. NIBP on. Warm blanket given. 12:18 Hand Left 3 View XRAY In Process Unspecified. EDMS 13:06 No provider procedures requiring assistance completed. Patient did not have IV access jl7 during this emergency room visit. Administered Medications: No medications were administered Outcome: 12:42 Discharge ordered by . jmm 13:06 Discharged to home ambulatory. jl7 13:06 Condition: stable 13:06 Discharge instructions given to patient, Instructed on discharge instructions, follow up and referral plans. Demonstrated understanding of instructions, follow-up care. 13:07 Patient left the ED. jl7 Signatures: Dispatcher [employer] EDMS Levi Ellington PA PA jmm Rivera Renetta mr Arpita Nieves, RN RN jl7 Cayetano Frankel RN RN bp
--- NOTE | 2019-05-15 12:44 | EDPHYS ---
Physician Documentation [facility] Name: Tracy Carballo Age: 58 yrs Sex: Female : 1960 Arrival Date: 05/15/2019 Time: 11:13 Bed 8 Private MD: ED Physician Sushil Krause HPI: 05/15 11:25 This 58 yrs old Female presents to ER via Ambulatory with complaints of Hand jmm Swelling. 11:25 The patient or guardian reports injury, pain. Onset: The symptoms/episode jmm began/occurred acutely, yesterday. Modifying factors: The symptoms are alleviated by nothing, the symptoms are aggravated by movement. Associated signs and symptoms: Pertinent positives: swelling. This is a 58 year old female with a history of htn that presents to the ED with complaints of left hand swelling beginning after a fall which occurred yesterday. Patient states tripping, landing on her left side. Patient denies any other known injury. . Historical: - Allergies: 11:19 No Known Allergies; bp - Home Meds: 11:19 Effexor XR 150 mg Oral cp24 1 cap once daily [Active]; atorvastatin 20 mg oral tab bp [Active]; Janumet 50-1,000 mg oral tab 1 tab 2 times per day [Active]; omeprazole 40 mg Oral cpDR 1 cap once daily [Active]; olmesartan oral oral [Active]; - PMHx: 11:19 Hypertension; bp - Immunization history:: Adult Immunizations up to date. - Social history:: Smoking status: Patient/guardian denies using tobacco. - Ebola Screening: : No symptoms or risks identified at this time. ROS: 11:25 Constitutional: Negative for fever, chills, and weight loss. jmm 11:25 Cardiovascular: Negative for chest pain, palpitations, and edema, Respiratory: Negative jmm for shortness of breath, cough, wheezing, and pleuritic chest pain, Abdomen/GI: Negative for abdominal pain, nausea, vomiting, diarrhea, and constipation. 11:25 MS/extremity: Positive for injury or acute deformity, pain, swelling. 11:25 All other systems are negative. Exam: 11:25 Constitutional: This is a well developed, well nourished patient who is awake, alert, jmm and in no acute distress. Head/Face: atraumatic. Eyes: EOMI, no conjunctival erythema appreciated ENT: Moist Mucus Membranes Neck: Trachea midline, Supple Chest/axilla: Normal chest wall appearance and motion. Cardiovascular: Regular rate and rhythm. No edema appreciated Respiratory: Normal respirations, no respiratory distress appreciated Abdomen/GI: Non distended, soft Back: Normal ROM Skin: General appearance color normal 11:25 Musculoskeletal/extremity: swelling noted to the left hand, FROM appreciated, < 2 sec dist cap refill, full radial pulse, compartments soft, NVI. No snuffbox tenderness appreciated. 11:25 Skin: Appearance: Color: normal in color. 11:25 Neuro: Orientation: is normal, Mentation: is normal, Memory: is normal. 11:25 Psych: Behavior/mood is pleasant, cooperative. Vital Signs: 11:19 BP 150 / 90; Pulse 70; Resp 16; Temp 98; Pulse Ox 100% ; Weight 73.48 kg; Height 5 ft. bp 8 in. (172.72 cm); 12:30 BP 148 / 89; Pulse 69; Resp 16 S; Pulse Ox 100% on R/A; jl7 11:19 Body Mass Index 24.63 (73.48 kg, 172.72 cm) bp MDM: 11:25 Patient medically screened. jose luis 12:40 Data reviewed: vital signs, nurses notes. Counseling: I had a detailed discussion with lillian the patient and/or guardian regarding: the historical points, exam findings, and any diagnostic results supporting the discharge/admit diagnosis, radiology results, the need for outpatient follow up, to return to the emergency department if symptoms worsen or persist or if there are any questions or concerns that arise at home. ED course: Patient is alert and non toxic in appearance in the ED. Imaging studies negative. Patient advised to follow up with ortho for reevaluation. Patient otherwise given strict return precautions. Patient understood and agrees with the plan if care. . 05/15 11:38 Order name: Hand Left 3 View XRAY; Complete Time: 12:49 lillian Administered Medications: No medications were administered Disposition: 05/16 08:31 Co-signature as Attending Physician, Sushil Krause MD I agree with the assessment and jose luis plan of care. Disposition: 05/15/19 12:42 Discharged to Home. Impression: Sprain of other part of left wrist and hand. - Condition is Stable. - Discharge Instructions: Hand Pain. - Medication Reconciliation Form, Thank You Letter, Antibiotic Education, Prescription Opioid Use form. - Follow up: Private Physician; When: 2 - 3 days; Reason: Recheck today's complaints, Continuance of care, Re-evaluation by your physician. Signatures: Dispatcher [employer] [facility] Sushil Krause MD MD cha Mickail, Joel, PA PA jmm Leal, Jahala RN RN jl7 Cayetano Frankel RN RN bp Corrections: (The following items were deleted from the chart) 05/15 12:18 11:45 Wrist Right 3 View+RAD.RAD.BRZ ordered. [facility] 13:07 12:42 05/15/2019 12:42 Discharged to Home. Impression: Sprain of other part of left jl7 wrist and hand. Condition is Stable. Forms are Medication Reconciliation Form, Thank You Letter, Antibiotic Education, Prescription Opioid Use. Follow up: Private Physician; When: 2 - 3 days; Reason: Recheck today's complaints, Continuance of care, Re-evaluation by your physician. lillian
[2019-05-15 14:06] VITALS: TEMP 98; O2SAT 100
[2019-05-15 14:07] VITALS: BP 148/89
== END 2019-05-15 13:07 | disposition home or self-care (01) ==
LOC: ER 11:09
DX: S63.8X2A Sprain of other part of left wrist and hand, initial encounter (principal); W01.0XXA Fall on same level from slipping, tripping and stumbling without subsequent striking against object, initial encounter; Y93.9 Activity, unspecified; Y92.9 Unspecified place or not applicable; I10 Essential (primary) hypertension
CPT/HCPCS: 99283

== ENCOUNTER 2019-10-11 08:00 | Day surgery (SDC) | payer BC ==
--- NOTE | 2019-10-10 13:10 | RAD REPORT ---
EXAM DESCRIPTION: RAD - Chest Pa And Lat (2 Views) - 10/10/2019 1:06 pm CLINICAL HISTORY: preop Chest pain. COMPARISON: No comparisons FINDINGS: The lungs are clear. The heart is normal in size. No displaced fractures. IMPRESSION: No acute or concerning finding suspected.
[2019-10-10 13:28] LABS: Basophils % 0.5 % (0-1.3); Lymphocytes % 25.2 % (15.3-44.8); MPV 7.2 fL (7.6-11.3); RBC Red Blood Cell Count 4.95 M/uL (3.86-4.86)
[2019-10-10 13:44] LABS: Albumin 3.7 g/dL (3.4-5.0); Bilirubin Direct 0.1 mg/dL (0-0.2); Bilirubin Total 0.6 mg/dL (0.2-1.0); Potassium 4.5 mmol/L (3.5-5.1); Protein, Total 7.8 g/dL (6.4-8.2)
--- NOTE | 2019-10-10 15:25 | EKG ---
Test Date: 2019-10-10 Test Time: 12:34:25 Replanting Machine Crewman: RASHIDA MEASUREMENT RESULTS: Intervals: Rate: 59 IN: 144 QRSD: 90 QT: 430 QTc: 425 [place]: P: 34 IN: 144 QRS: -4 T: 34 INTERPRETIVE STATEMENTS: Sinus bradycardia Otherwise normal ECG No previous ECG available for comparison Electronically Signed On 10-10-19 15:24:00 MANAGER RADIO by Michael Price
--- OUTSIDE RECORDS SUMMARY | 2019-10-11 08:03 | XMS REPORT ---
:1960 [facility] Address [address] [place] [address] [address]. [address] [place] [address] Care Team Providers Name Role Phone Unavailable Unavailable Unavailable Problems This patient has no known problems. Allergies, Adverse Reactions, Alerts This patient has no known allergies or adverse reactions. Medications This patient has no known medications. Results Test Description Test Time Test Comments Text Results Atomic Results Result Comments SCR MAMM BILATERAL RAYMOND 2019-05-18 09:45:23 - SCR MAMM BILATERAL RAYMOND CAD CAD DIGITAL DIGITALBILATERAL DIGITAL SCREENING MAMMOGRAM 3D/2D WITH CAD: 05/18/2019CLINICAL: Asymptomatic. Digital breast tomosynthesis was performed in addition to routine CC and MLO views. Current mammographic images were evaluated by either a [employer] M-Vu or a [employer]™ ImageChecker CAD (computer aided detection system). Comparison is made to exams dated 03/31/2018 mammogram - [facility], 02/11/2017 mammogram, and 11/13/2015 mammogram - [facility]. The tissue of both breasts is predominantly fatty. There are benign calcifications in the left breast. No suspicious mass, architectural distortion, malignant type calcification, or lymph node abnormality detected. Breast architecture is stable compared to prior exams.IMPRESSION: BENIGNThere is no mammographic evidence of malignancy. Resume annual screening mammography in one year. Kenia cope/penabigail:05/18/2019 09:45:23 copy to: Adamaris Sr MD, ph: [phone], fax: [phone] Technologist: Gretel ORTIZ, [facility] sent: BIRADS 1-2 Normal Mammogram BI-RADS: [address], BRAIN, WITHOUT 2017-07-02 15:02:[address] head without contrast 07/02/2017 3:01 PM [...] Desouza Verified Date/Time: 07/02/2017 15:02:39 Reading Location: [facility] Radiology Reading Room
--- OUTSIDE RECORDS SUMMARY | 2019-10-11 08:04 | XMS REPORT | Encounter Summary ---
:1960 Author Care Team Providers Name Role Phone Dr. Adamaris Sr Primary Care Provider [phone] Adamaris Sr MD Primary Care Provider [phone] Reason for Visit Bilateral neck pain Instructions 1. Muscle spasm of cervical muscle of neck cyclobenzaprine 10 mg tablet tramadol 50 mg tablet 2. Type 2 diabetes mellitus with multiple complications 3. Hypertensive renal disease 4. Body mass index 25-29 - overweight learning about healthy weight Discussion Note: None recorded. Plan of Care Patient Instructions Prescriptions were sent to your pharmacy today, please call if any issues Reminders Provider Appointments Est on or around Adamaris O Patient 12/21/2019 MD [facility] None recorded. Referral None recorded. Procedures None recorded. Surgeries None recorded. Imaging None recorded. Medications Name Start Date atorvastatin 40 mg tablet Take 1 tablet every day by oral route. cetirizine 10 mg tablet cyclobenzaprine 10 mg tablet Take 1 tablet twice a day by oral route as needed. sedation caution desonide 0.05 % topical cream diclofenac 1.5 % topical drops Effexor XR 150 mg capsule,extended release Take 1 capsule every day by oral route. Janumet XR 50 mg-1,000 mg tablet,extended release Take 1 tablet twice a day by oral route for 90 days. lidocaine 5 % topical ointment olmesartan 40 mg-amlodipine 10 mg-hydrochlorothiazide 12.5 mg tablet Take 1 tablet every day by oral route. omeprazole 40 mg capsule,delayed release Take 1 capsule every day by oral route. [employer] Lancets 33 gauge Macu[employer]ixTouch Ultra Test strips ORTHOVISC 30 mg/2 mL intra-articular syringe tramadol 50 mg tablet Take 1 tablet twice a day by oral route as needed. sedation caution Medications Administered None recorded. Vitals Height Weight BMI Blood Pressure 5 ft 7 in 174.4 lbs 27.3 kg/m2 132/86 mm[Hg] Results Lab Results None recorded. 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 12/15/2016 Mixed Anxiety and Depressive Disorder Active 12/15/2016 Hypertensive Renal Disease Active 12/15/2016 Gastroesophageal Reflux Disease without Active 12/15/2016 Esophagitis Chronic Kidney Disease Stage 3 Active 12/15/2016 Mixed Hyperlipidemia Due to Type 2 Diabetes Active 12/15/2016 Mellitus Transient Cerebral Ischemia Active 08/11/2017 Diabetes Mellitus Active 06/30/2019 Procedures Date Name Performed by 08/23/2018 Orthopedic Surgery Information not available 08/10/2018 Colonoscopy Information not available 08/23/2011 Orthopedic Surgery Information not available Vaccine List Vaccine Type Influenza, injectable, MDCK, quadrivalent 06/30/20170.5 mL influenza, injectable, quadrivalent, preservative free 06/30/2019 pneumococcal polysaccharide PPV23 03/15/2012 Tdap 02/24/2013 Social History Tobacco Smoking Status Former Smoker Past Encounters 09/22/2019 Muscle Spasm of Cervical Muscle of Neck; Type 2 Diabetes Mellitus with Multiple Complications; Hypertensive Renal Disease; Body Mass Index 25-29 - Overweight Adamaris Sr MD: [id number], [address], [place] [address], Ph. History of Present Illness Note: 58 yo female with DM2 CRI3, hyperlipidemia, HTN, anxiety/depression , GERD restless legs, chronic back pains- sees pain management, s/p ablative tx , per above, also uses OTC CBD oil with goodrelief, today c/o right sided neck pain onset 4-5 days ago, now also with left sided pain<div>using OTC lineament without relief</div><div>denies paresthesias, weakness of hands</div><div>no trauma or overexertion</div>&lt ;div>
</div><div>RUQ pains, intermittently- went to ER in [place] recently , Dx gallstones, scheduled to see Dr. Naveed So for cholecystectomy soon.. previously with severe nausea after eating beef stroganoff,currently asymptomatic, denies diarrhea/vomiting/nausea,/contipation& lt;br><div><div></div></div></div> Review of Systems Notes: General: see HPI

HEENT: denies blurring, diplopia, irritation, discharge, ear pain /discharge, tinnitus, nasal obstruction, sore throat

CV: denies chest pains, palpitations, orthopnea or edema

Resp: denies wheeze, shortness of breath, cough

GI: see HPI

: denies hematuria, frequency, urgency, dysuria, discharge, incontinence

Derm: denies rash, bruising

M/S: see HPI<div>
Psych: denies anxiety/depression, panic attacks

Neuro: see HPI</div> Physical Exam Notes: General: well developed, well nourished, in no acute distress.

Head: normocephalic and atraumatic.

Eyes: PERRL/EOM intact, conjunctiva and sclera clear with out nystagmus.

Ears: grossly normal hearing.

Nose: no deformity, discharge, inflammation, or lesions.

Mouth: no deformity or lesions with good dentition.

Neck: (+) mild spasm/TTP bilat paracervicospinous and trapezius L>R, decreased ROM due to discomfort with bilat rotation and full extension, no masses, thyromegaly, or abnormal cervical nodes.

Chest Wall: no deformities or masses noted.

Lungs: clear bilaterally to auscultation. nonlabored respiratory effort, no wheeze, rales or rhonchi

Heart: chest non-tender; regular rate and rhythm, S1, S2 without murmurs, rubs, or gallops

Abdomen: soft, nontender, nondistended, no masses, no hernia, no rebound, normoactive bowel sounds

Msk: no deformity or scoliosis noted of thoracic or lumbar spine.

Pulses: pulses normal in all 4 extremities.

Extremities: no clubbing, cyanosis, edema, or deformity noted with normal full range of motion of all joints.

Neurologic: no focal deficits, cranial nerves II-XII grossly intact with normal sensation, reflexes, coordination, muscle strength and tone.

Skin: intact without lesions or rashes.

Lymph Nodes:no significant cervical, axillary or supraclavicular adenopathy.

Psych: alert and cooperative; normal mood and affect; normal attention span and concentration. No suicidal/homicidal ideations, no panic attacks
[2019-10-11] MEDS ORDERED: NA CHLORIDE 0.9% 1,000 ML ONE ×2 (09:07→10:33)
[2019-10-11] MEDS ORDERED: CEFOXITIN/SWI 1gm 1 GM/10 ML SYR ONE (09:07)
[2019-10-11] MEDS ORDERED: propofoL 200 MG/20 ML VIAL IV ONE (09:34)
[2019-10-11] MEDS ORDERED: FENTANYL CITR 100 MCG/2 ML ONE (09:34)
[2019-10-11] MEDS ORDERED: MIDAZOLAM HCL 2 MG/2 ML INJ ONE (09:34)
[2019-10-11] MEDS ORDERED: LIDOCAINE 2% MPF 5 ML VIAL ONE (09:34)
[2019-10-11] MEDS ORDERED: ROCURONIUM 50 MG/5 ML VIAL IV ONE (09:34)
[2019-10-11] MEDS ORDERED: GLYCOPYRROLATE 0.2 MG/ML SYR ONE (10:31)
[2019-10-11] MEDS ORDERED: EPHEDRINE SULF 50 MG/ML VIAL ONE (10:32)
[2019-10-11] MEDS ORDERED: ONDANSETRON 4 MG/2 ML VIAL ONE ×2 (10:36→11:34)
[2019-10-11] MEDS ORDERED: KETOROLAC 30 MG/ML INJ ONE (10:36)
[2019-10-11] MEDS ORDERED: dexAMETHasone 4 MG/ML VIAL ONE (10:44)
--- NOTE | 2019-10-11 10:48 | P.BOP ---
Preoperative diagnosis: symptomatic cholelithiasis, acute cholecytitis, RUQ abd pain., fatty liver Postoperative diagnosis: same Primary procedure: 1. Laparoscopic cholecystectomy Secondary procedure: 2. Laparoscopic liver biopsy Stem Cutter: Marli Fong) Estimated blood loss: <1occ Specimen: liver bx, gallbladder Findings: Laparoscopic liver biopsy per gastroenterology request Anesthesia: General Complications: None Transferred to: Recovery Room Condition: Good
[2019-10-11] MEDS ORDERED: NEOSTIGMINE 1 MG/ML -5 ML ONE (10:58)
[2019-10-11 11:01] VITALS: O2SAT 100
[2019-10-11] MEDS: HYDROMORPHONE HCL 1 MG/ML INJ ONE ×2 (11:32→11:37)
[2019-10-11 12:25] VITALS: BP 112/75; TEMP 96.4
--- NOTE | 2019-10-11 21:43 | DS ---
Date of Discharge: 10/11/2019 Diagnoses: Symptomatic cholelithiasis, acute cholecystitis, right upper quadrant abdominal pain, fat ty liver. Procedure: Laparoscopic cholecystectomy and laparoscopic liver biopsy. Disposition: Home. Activity: As tolerated. No heavy lifting. Followup: Follow up in my office in 1 week. Call for appointment [phone]. Keep area dry for 48 ho urs, then may shower, keep Steri-Strip intact. Medications: Include Tylenol No. 3 q.4 hours p.r.n. pain and Bactrim DS p.o. b.i.d. MARGO/ALEJANDRA Voice ID: [id number] Report ID: [id number]
--- NOTE | 2019-10-11 21:43 | OP ---
Date of Procedure: 10/11/2019 Surgeon: Naveed So MD Buckle Stapler: Marli Gipson. Diagnoses: Symptomatic cholelithiasis, Acute cholecystitis, right upper quadrant abdominal pain, fat ty liver. Postoperative Diagnoses: Symptomatic cholelithiasis, Acute cholecystitis, right upper quadrant abdom inal pain, fatty liver. Procedures: 1.Laparoscopic cholecystectomy. 2.Laparoscopic liver biopsy. Specimen: Liver biopsy and gallbladder. Findings: The [place] cash processing specialist request that during the cholecystectomy, we performed a huy er biopsy needed for further diagnosis and workup by his practice, the patient has been for that, so we proceed and explained to her the benefits, alternatives, and risks of laparoscopic cholecystectomy and laparoscopic liver biopsy. Which include not limited to infection, bleeding, damage to adjacent structures as complication, recurrence, AK, and even . She also understands this may not relie ve any symptoms. She might need more than one surgical intervention. She also explained that is imp ortant that we going to give the biopsy results to her for bring it to the primary doctor for further treatment. Further treatment is needed. Anesthesia: General anesthesia. Indications: This is a case of a 59-year-old patient, comes to us with above diagnosis. Fully expla ined the benefits, alternatives, and risks of laparoscopic, possible open cholecystectomy and liver b iopsy which include, but not limited to infection, bleeding, damage to adjacent structures, anesthesi a complication, choledocholithiasis, bile leak, pancreatitis, AK, and even . She also understan ds this may not relieve the symptoms. She might need more than one surgical intervention. She under stood signed a consent. Description Of Procedure: Patient was brought to the operating room, placed in supine position. Ane sthesia was done without complication. Abdominal area was prepped and draped in sterile fashion. Ma rcaine 0.5% was injected for local anesthetic, followed by sharp incision of skin in the infraumbilic al region. Incision was carried down to fascia, which was opened under direct vision. Peritoneum wa s encountered, opened under direct vision. Vicryl #1 placed inside the fascia. Aviva trocar was ca refully introduced. No bleeding was obtained. I placed 3 more trocars, 5 mm each one of them, one i n epigastric area, two in the right upper quadrant using same technique, which consisted of local ane sthetic, sharp incision of the skin, and introduction of the trocars under direct vision. This allow ed me to put a 3 more trocars, 5 mm each one of them, in right upper quadrant under direct visualizat ion. We put a grasper in the fundus of the gallbladder, another grasper in the infundibulum, and ret racting the gallbladder in the inferolateral fashion exposing the triangle of Calot, and obtaining cr itical view of safety. Cystic duct and cystic artery were clearly isolated, freed circumferentially and a connection between those and the gallbladder was clearly identified. I proceeded to ligate tho se by using at least 3 clips proximal, 1 clip distal, ligation in middle. Same was done with the cys tic artery. No bile leak. No bleeding. The gallbladder was removed from liver using Bovie cauteriz er and removed from abdominal cavity using EndoCatch through umbilical incision. The area was inspec nano once again. No bile leak. No bleeding. At that moment, we proceeded to do the liver biopsy. W e found an area on the anterior area of the liver that we believe was safe to do liver biopsy and we took about 2 cm that part of the liver, I striped, so we can send it to the pathology for good specim en. The area was cauterized. No bleeding. Once again, the area was irrigated and suctioned once ag ain. We checked the area of the clips intact. We checked the area liver be biopsy intact with no bl eeding and no bile leak. At that moment, I proceeded to remove the trocars under direct vision. Def lated the pneumoperitoneum. Closed the fascia with #1 Vicryl. Irrigated subcu tissue, closed that w ith 3-0 chromic and skin in a subcuticular fashion with 3-0 chromic and Steri-Strips on top. Sponge count and instrument counts were correct. Patient tolerated the procedure well. Patient was sent to recovery in stable condition. MARGO/MODL Voice ID: [id number] Report ID: [id number]
== END 2019-10-11 13:05 | disposition home or self-care (01) ==
LOC: OR 08:00
PROVIDERS: ATTEND Surgery
PROC: 0FB04ZX Excision of Liver, Percutaneous Endoscopic Approach, Diagnostic (ICD-10-PCS; 2019-10-11)
PROC: 0FT44ZZ Resection of Gallbladder, Percutaneous Endoscopic Approach (ICD-10-PCS; principal; 2019-10-11 10:00)
DX: K80.12 Calculus of gallbladder with acute and chronic cholecystitis without obstruction (principal); K76.0 Fatty (change of) liver, not elsewhere classified; K21.9 Gastro-esophageal reflux disease without esophagitis; E11.9 Type 2 diabetes mellitus without complications; I10 Essential (primary) hypertension; E78.00 Pure hypercholesterolemia, unspecified; F17.210 Nicotine dependence, cigarettes, uncomplicated; Z80.0 Family history of malignant neoplasm of digestive organs; Z80.1 Family history of malignant neoplasm of trachea, bronchus and lung; Z80.7 Family history of other malignant neoplasms of lymphoid, hematopoietic and related tissues; Z83.3 Family history of diabetes mellitus; Z82.49 Family history of ischemic heart disease and other diseases of the circulatory system
CPT/HCPCS: 93005; 85025; 80048; 36415; 82150; 88313; 82947 ×2; 80076; 88305; 88307; 83690; 71046; 47562; 47379; J2704; J2250; J3010; J1170; J2710; J7030 ×2; J2405 ×2; 88304

== ENCOUNTER 2021-11-08 12:04 | Emergency (ER) | payer BC, OTHER ==
--- OUTSIDE RECORDS SUMMARY | 2021-11-08 12:08 | XMS REPORT | Continuity of Care Document ---
:[address] [facility] t Address [address] [place] [address] Care Team Providers Name Role Phone Andrés Attending Clinician Unavailable Sulaiman Attending Clinician Unavailable JIM Attending Clinician Unavailable ISAI Attending Clinician Unavailable MD Delano OSORIO Attending Clinician Unavailable DEVON Attending Clinician Unavailable LORRAINE HANSEN Attending Clinician Unavailable Doctor Unassigned, Name Attending Clinician Unavailable MECCA Attending Clinician Unavailable Andrés Admitting Clinician Unavailable Sulaiman Admitting Clinician Unavailable ISAI Admitting Clinician Unavailable MD DEVON A Admitting Clinician Unavailable Payers Payer Name Policy Type Policy Number Effective Date Expiration Date S ource [place] [id number] 2020 [employer] 00:00:00 [place] [id number] [place] [id number] 2017 [place] ([place] 00:00:00 Problems Condition Condition Condition Status Onset Resolution Last Treating Co mments Source Name Details Category Date Date Treatment Clinician Date 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 00:00: Prac tic of skin of Skin e Cervical Cervical Problem Active [facility] radiculopa Radiculopa 6-17 Fa rhea thy thy 00:00: Practic 00 e Diabetes Diabetes Problem Active 2018-08 [facility] mellitus Mellitus 1-08 Family 00:00: Practic 00 e Transient Transient Problem Active 2016-08 Naun wisam 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 00:00: Practi c 00 e Disorder Disorder Problem Active [facility] of kidney of Kidney 12-15 Fami ly due to Due to 00:00: Practic diabetes Diabetes e mellitus Mellitus Mixed Mixed Problem Active [facility] anxiety Anxiety 12-15 Family and and 00:00: Practic depressive Depressive 00 e disorder Disorder Hypertensi Hypertensi Problem Active [facility] renal ve Renal 12-15 Family disease Disease 00:00: Practic 00 e Gastroesop Gastroesop Problem Active [facility] hageal hageal 12-15 Family reflux Reflux 00:00: Practic disease Disease 00 e without without esophagiti Esophagiti s s Chronic Chronic Problem Active [facility] kidney Kidney 12-15 Family disease Disease 00:00: Practic stage 3 Stage 3 00 e Mixed Mixed Problem Active [facility] hyperlipid Hyperlipid 12-15 Fa rhea emia due emia Due 00:00: Practi c to type 2 to Type 2 00 e diabetes Diabetes mellitus Mellitus Allergies, Adverse Reactions, Alerts Allergy Allergy Status Severity Reaction(s) Onset Inactive Treating Comm ents Source Name Type Date Date Clinician NO KNOWN Drug Active Univers ALLERGIE Class ity of [facility] ADRIANA Allergy Active [facility] INHIBITO to Family RS substanc Practic e e Social History Social Habit Start Date Stop Date Quantity Comments Source Sex Assigned At Uni versity [facility] Smoking Status Start Date Stop Date Source Unknown if ever smoked Universit y [facility] Light Tobacco Smoker [facility] lotus Practice Medications Ordered Filled Start Stop Current Ordering Indication Dosage Frequency Signature Comments Components Source Medication Medication Date Date Medication? Clinician (SIG) Name Name atorvasshahnaz atorvastati No atorvastat [facility] n 40 mg n 40 mg in 40 mg Famil y tablet TAKE tablet TAKE tablet Practic 1 TABLET BY 1 TABLET BY TAKE 1 e MOUTH EVERY MOUTH EVERY TABLET BY DAY DAY MOUTH EVERY DAY Effexor XR Effexor XR No Effexor XR [facility] 150 mg 150 mg 150 mg Family capsule,ext capsule,ext capsule,ex Practic ended ended tended e release release release TAKE 1 TAKE 1 TAKE 1 CAPSULE BY CAPSULE BY CAPSULE BY MOUTH EVERY MOUTH EVERY MOUTH DAY DAY EVERY DAY glipizide 5 glipizide 5 No glipizide [facility] mg tablet mg tablet 5 mg Famil y TAKE 1 TAKE 1 tablet Practic TABLET BY TABLET BY TAKE 1 e MOUTH EVERY MOUTH EVERY TABLET BY DAY WITH DAY WITH MOUTH MEALS MEALS EVERY DAY WITH MEALS t XR Janumet XR No Janumet XR [facility] 50 mg-1,000 50 mg-1,000 50 F amily mg mg mg-1,000 Practic tablet,exte tablet,exte mg e nded nded tablet,ext release release ended TAKE 1 TAKE 1 release TABLET BY TABLET BY TAKE 1 MOUTH TWICE MOUTH TWICE TABLET BY DAILY WITH DAILY WITH MOUTH MEALS MEALS TWICE DAILY WITH MEALS olmesartan olmesartan No olmesartan [facility] 40 40 40 Family mg-amlodipi mg-amlodipi mg-amlodip Practic ne 10 ne 10 ine 10 e mg-hydrochl mg-hydrochl mg-hydroch orothiazide orothiazide lorothiazi 12.5 mg 12.5 mg de 12.5 mg tablet TAKE tablet TAKE tablet 1 TABLET BY 1 TABLET BY TAKE 1 MOUTH DAILY MOUTH DAILY TABLET BY MOUTH DAILY omeprazole omeprazole No omeprazole [facility] 40 mg 40 mg 40 mg Family capsule,del capsule,del capsule,de Practic ayed ayed layed e release release release TAKE 1 TAKE 1 TAKE 1 CAPSULE BY CAPSULE BY CAPSULE BY MOUTH TWICE MOUTH TWICE MOUTH DAILY DAILY TWICE DAILY OneTouch OneTouch No OneTouch [facility] Delica Delica [facility] Lancets 33 Lancets 33 Lancets 33 Practic gauge USE gauge USE gauge USE e ONCE DAILY ONCE DAILY ONCE DAILY OneTouch OneTouch No OneTouch [facility] Ultra Test Ultra Test Ultra Test Family strips USE strips USE strips USE Practic ONCE DAILY ONCE DAILY ONCE DAILY e OneTouch OneTouch No OneTouch [facility] Ultra2 Ultra2 Ultra2 Family Meter USE Meter USE Meter USE Practic DIRECTED DIRECTED e DIRECTED Pepcid AC Pepcid AC No Pepcid AC [facility] 20 mg 20 mg 20 mg Family tablet TAKE tablet TAKE tablet Practic 1 TABLET BY 1 TABLET BY TAKE 1 e MOUTH EVERY MOUTH EVERY TABLET BY 12 HOURS 12 HOURS MOUTH FOR 10 DAYS FOR 10 DAYS EVERY 12 HOURS FOR 10 DAYS Immunizations Ordered Immunization Filled Immunization Date Status Commen ts Source Name Name influenza, influenza, 2021-05-23 Completed [facility] unspecified unspecified 00:00:00 Practice formulation formulation COVID-19, mRNA, COVID-19, mRNA, 2020-12-21 Completed [facility] LNP-S, PF, 100 LNP-S, PF, 100 00:00:00 Practi ce mcg/0.5 mL dose mcg/0.5 mL dose (Moderna) (Moderna) COVID-19, mRNA, COVID-19, mRNA, 2020-11-21 Completed [facility] Family LNP-S, PF, 100 LNP-S, PF, 100 00:00:00 Practi ce mcg/0.5 mL dose mcg/0.5 mL dose (Moderna) (Moderna) influenza, influenza, 2020-05-22 Completed [facility] recombinant, recombinant, 14:13:39 Practice quadrIvalent,injectab quadrIvalent,injectab le, preservative free le, preservative free influenza, influenza, 2019-06-30 Completed [facility] injectable, injectable, 15:02:00 Practice quadrivalent, quadrivalent, preservative free preservative free Influenza, Influenza, 2017-06-30 Completed [facility] injectable, MDCK, injectable, MDCK, 18:06:00 Practice quadrivalent quadrivalent Tdap Tdap 2013-02-24 [facility] 00:00:00 Practice pneumococcal pneumococcal 2012-03-15 Completed [facility] rhea polysaccharide PPV23 polysaccharide PPV23 00:00:00 Practice Vital Signs Vital Name Observation Time Observation Value Comments Source Height 2021-10-27 00:00:00 67 [in_i] [facility] Practice BMI (Body Mass 2021-10-27 00:00:00 26.6 kg/m2 [facility] e Family Index) Practice Body Weight 2021-10-27 00:00:00 170 [lb_av] [facility] Practice BP Diastolic 2021-10-03 00:00:00 87 mm[Hg] [facility] Practice Height 2021-10-03 00:00:00 67 [in_i] [facility] Practice BMI (Body Mass 2021-10-03 00:00:00 28 kg/m2 [facility] e Family Index) Practice BP Systolic 2021-10-03 00:00:00 136 mm[Hg] [facility] Practice Body Weight 2021-10-03 00:00:00 179 [lb_av] [facility] Practice Height 2021-04-03 00:00:00 67 [in_i] [facility] Practice BMI (Body Mass 2021-04-03 00:00:00 28 kg/m2 [facility] e Family Index) Practice Body Weight 2021-04-03 00:00:00 179 [lb_av] [facility] BP Diastolic 2021-03-24 00:00:00 79 mm[Hg] [facility] Height 2021-03-24 00:00:00 67 [in_i] [facility] BMI (Body Mass 2021-03-24 00:00:00 27.9 kg/m2 [facility] BP Systolic 2021-03-24 00:00:00 117 mm[Hg] [facility] Body Weight 2021-03-24 00:00:00 178 [lb_av] [facility] Height 2020-12-11 00:00:00 67 [in_i] [facility] BP Diastolic 2020-07-15 00:00:00 80 mm[Hg] [facility] Height 2020-07-15 00:00:00 67 [in_i] [facility] BMI (Body Mass 2020-07-15 00:00:00 27.7 kg/m2 [facility] BP Systolic 2020-07-15 00:00:00 125 mm[Hg] [facility] Body Weight 2020-07-15 00:00:00 177 [lb_av] [facility] BP Diastolic 2020-05-22 00:00:00 89 mm[Hg] [facility] Height 2020-05-22 00:00:00 67 [in_i] [facility] BMI (Body Mass 2020-05-22 00:00:00 28.3 kg/m2 [facility] BP Systolic 2020-05-22 00:00:00 132 mm[Hg] [facility] Body Weight 2020-05-22 00:00:00 180.4 [lb_av] [facility] BP Diastolic 2020-04-30 00:00:00 82 mm[Hg] [facility] Height 2020-04-30 00:00:00 67 [in_i] [facility] BMI (Body Mass 2020-04-30 00:00:00 27.6 kg/m2 [facility] BP Systolic 2020-04-30 00:00:00 121 mm[Hg] [facility] Body Weight 2020-04-30 00:00:00 176 [lb_av] [facility] Height 2020-02-07 00:00:00 67 [in_i] [facility] BMI (Body Mass 2020-02-07 00:00:00 27.1 kg/m2 [facility] Body Weight 2020-02-07 00:00:00 173 [lb_av] [facility] Practice BP Diastolic 2019-09-22 00:00:00 86 mm[Hg] [facility] Family Practice Height 2019-09-22 00:00:00 67 [in_i] [facility] Family Practice BMI (Body Mass 2019-09-22 00:00:00 27.3 kg/m2 [facility] Family Index) Practice BP Systolic 2019-09-22 00:00:00 132 mm[Hg] [facility] Family Practice Body Weight 2019-09-22 00:00:00 174.4 [lb_av] [facility] Practice BP Diastolic 2019-06-30 00:00:00 70 mm[Hg] [facility] Family Practice Height 2019-06-30 00:00:00 67 [in_i] [facility] Family Practice BMI (Body Mass 2019-06-30 00:00:00 26.9 kg/m2 [facility] Family Index) Practice BP Systolic 2019-06-30 00:00:00 118 mm[Hg] [facility] Practice Body Weight 2019-06-30 00:00:00 172 [lb_av] [facility] Practice BP Diastolic 2019-04-06 00:00:00 72 mm[Hg] [facility] Family Practice Height 2019-04-06 00:00:00 67 [in_i] [facility] Family Practice BMI (Body Mass 2019-04-06 00:00:00 26.3 kg/m2 [facility] Family Index) Practice BP Systolic 2019-04-06 00:00:00 115 mm[Hg] [facility] Practice Body Weight 2019-04-06 00:00:00 168 [lb_av] [facility] Practice BP Diastolic 2018-10-25 00:00:00 86 mm[Hg] [facility] Practice Height 2018-10-25 00:00:00 67 [in_i] [facility] Family Practice BMI (Body Mass 2018-10-25 00:00:00 28.2 kg/m2 [facility] Family Index) Practice BP Systolic 2018-10-25 00:00:00 124 mm[Hg] [facility] Practice Body Weight 2018-10-25 00:00:00 180 [lb_av] [facility] Family Practice Procedures Procedure Date / Time Performed Performing Clinician [facility] e LDCT, chest, for lung 2021-10-13 00:00:00 [facility] Family cancer screening Practice DOPPLER, DUPLEX 2021-10-03 00:00:00 [facility] ARTERIAL SCAN OF LOWER Practice EXT; (BILAT) ankle brachial index 2021-10-03 00:00:00 [facility] LDCT, chest, for lung 2021-10-03 00:00:00 Eric pat [facility] cancer screening Practice MAMMO, screening, 2021-10-03 00:00:00 [facility] Mayra wilkerson yohana, bilateral Practice DEXA, axial skeleton 2021-03-24 00:00:00 [facility] MAMMO, screening, 2021-03-24 00:00:00 [facility] Mayra wilkerson yohana, bilateral Practice Orthopedic Surgery 2021-03-23 00:00:00 [facility] Cassie leachlucille Practice Colonoscopy 2021-01-21 [facility] 2020-12-13 00:00:00 [facility] Practice MAMMO, screening, 2019-04-06 00:00:00 [facility] Mayra wilkerson yohana, bilateral Practice Spine Surgery 2018-12-21 00:00:00 [facility] Pau bijal Practice Back Surgery 2018-11-21 00:00:00 [facility] Pau appiah Practice Orthopedic Surgery 2018-08-23 00:00:00 [facility] Cassie bonilla Practice Colonoscopy 2018-08-10 00:00:00 [facility] Pau appiah Practice Orthopedic Surgery 2011-08-23 00:00:00 [facility] Cassie bonilla Practice Plan of Care Planned Activity Planned Date Details Comments Source Future Appointment 2022-04-01 00:00:00 Adamaris PattiJessica, [facility] [address], [place] [address] Encounters Start End Encounter Admission Attending Care Care Encounter Source Date/Time Date/Time Type Type Clinicians Facility Department ID 2021-11-03 2021-11-03 Outpatient Sosa-Gor_M_ VFP VFP [id number] [facility] 08:50:00 08:50:00 RAEGAN [id number] Family Practic e 2021-11-01 2021-11-01 Outpatient Sosa-Gor_M VFP VFP [id number] [facility] 10:37:00 10:37:00 Family Practic e 2021-10-29 2021-10-29 Outpatient Sosa-Gor_M VFP VFP [id number] [facility] 09:05:00 09:05:00 Family Practic e 2021-10-27 2021-10-27 Outpatient Sosa-Gor_M VFP VFP [id number] [facility] 03:12:00 03:12:00 Family Practic e 2021-10-27 2021-10-27 Megan Adrian VFP [place] - 7 [facility] 00:00:00 00:00:00 Susan [facility] Pau appiah MD: [id number] Medical - Pract ic Kiefer VM_HOU_East e , [facility] [address], ([place] [address] , Ph. 2021-10-10 2021-10-10 Outpatient Sosa-Gor_M VFP VFP [id number] [facility] 03:37:00 03:37:00 [id number] Family Practic e 2021-10-07 2021-10-07 Outpatient Sosa-Gor_M VFP VFP [id number] [facility] 05:54:00 05:54:00 [id number] Family Practic e 2021-10-03 2021-10-03 Outpatient Sosa-Gor_M VFP VFP [id number] [facility] 11:00:00 11:00:00 [id number] Family Practic e 2021-10-03 2021-10-03 Adamaris O VFP [place] - [id number] [facility] 00:00:00 00:00:00 Remberto [facility] Pau appiah MD: [id number] Medical - Prac tic Shadow VM_HOU_Shad e [facility] [address] [address] , Ph. 2021-10-02 2021-10-02 Outpatient Sosa-Gor_M VFP VFP [id number] [facility] 02:00:00 02:00:00 [id number] Family Practic e 2021-09-01 2021-09-01 Outpatient [facility] [id number] [address] [place] [address] 00:00:00 00:00:00 HILDA [address] 2021-08-25 2021-08-25 Outpatient [facility] [id number] [address] [place] [address] 00:00:00 00:00:00 HILDA [address] 2021-08-11 2021-08-11 [facility] [id number] 00:00:00 00:00:00 HILDA Carl[address] [facility] 2021-08-06 2021-08-06 [facility] [id number] 00:00:00 00:00:00 YANE [address] 2021-08-05 2021-08-05 Outpatient Sosa-Gor_M VFP VFP [id number] [facility] 07:56:00 07:56:00 [id number] Family Practic e 2021-08-02 2021-08-02 Outpatient Sosa-Gor_M_ VFP VFP [id number] [facility] 05:28:00 05:28:00 RAEGAN [id number] Family Practic e 2021-06-25 2021-06-25 [facility]patient [facility] [id number] 00:00:00 00:00:00 YANE [address] 2021-06-10 2021-06-10 Outpatient Sosa-Gor_M VFP VFP [id number] [facility] 01:44:00 01:44:00 [id number] Family Practic e 2021-06-07 2021-06-07 Outpatient Sosa-Gor_M_ VFP VFP [id number] [facility] 06:22:00 06:22:00 SIVAN [id number] Family Practic e 2021-06-02 2021-06-02 Outpatient Sosa-Gor_M_ VFP VFP [id number] [facility] 01:28:00 01:28:00 SIVAN [id number] Family Practic e 2021-05-28 2021-05-28 Outpatient [facility] [id number] 00:00:00 00:00:00 YANE [address] 2021-05-26 2021-05-26 Outpatient Sosa-Gor_M_ VFP VFP [id number] [facility] 10:44:00 10:44:00 SIVAN [id number] Family Practic e 2021-05-19 2021-05-19 Outpatient Sosa-Gor_M_ VFP VFP [id number] [facility] 12:02:00 12:02:00 SIVAN [id number] Family Practic e 2021-05-15 2021-05-15 Outpatient [facility] [id number] 00:00:00 00:00:00 YANE [address] 2021-05-12 2021-05-12 Outpatient DEVON, [facility] [id number] [place] 00:00:00 00:00:00 MAKEDA [address] [facility] 2021-05-11 2021-05-11 Outpatient Sosa-Gor_M_ VFP VFP [id number] [facility] 11:43:00 11:43:00 WAMichelle 49680 Family Practic e 2021-05-05 2021-05-05 Outpatient Sosa-Gor_M_ VFP VFP [id number] [facility] 06:20:00 06:20:00 SIVAN [id number] Family Practic e 2021-05-05 2021-05-05 Outpatient [facility] [id number] 00:00:00 00:00:00 YANE [address] 2021-05-02 2021-05-02 Outpatient [facility] [id number] 00:00:00 00:00:[address] 2021-04-26 2021-04-26 Outpatient Sosa-Gor_M_ VFP VFP [id number] [facility] 03:46:00 03:46:00 WAG 89225 Family Practic e 2021-04-19 2021-04-19 Outpatient Sosa-Gor_M_ VFP VFP [id number] [facility] 09:35:00 09:35:00 WAG 72174 Family Practic e 2021-04-15 2021-04-15 Outpatient Sosa-Gor_M_ VFP VFP [id number] [facility] 02:43:00 02:43:00 SIVAN [id number] Family Practic e 2021-04-11 2021-04-11 Outpatient Sosa-Gor_M_ VFP VFP [id number] [facility] 08:54:00 08:54:00 SIVAN 92715 Family Practic e 2021-04-11 2021-04-11 Outpatient [facility] [id number] 00:00:00 00:00:00 YANE [address] 2021-04-11 2021-04-11 Outpatient [facility] [id number] 00:00:00 00:00:00 YANE [address] 2021-04-08 2021-04-08 Outpatient Sosa-Gor_M_ VFP VFP [id number] [facility] 03:23:00 03:23:00 [facility] [id number] Family Practic e 2021-04-05 2021-04-05 Outpatient Sosa-Gor_M_ VFP VFP 299 [id number] [facility] 12:04:00 12:04:00 [facility] [id number] Family Practic e 2021-04-04 2021-04-04 Outpatient Sosa-Gor_M VFP VFP [id number] [facility] 01:42:00 01:42:00 [id number] Family Practic e 2021-04-03 2021-04-03 Outpatient Sosa-Gor_M VFP VFP [id number] [facility] 03:54:00 03:54:00 [id number] Family Practic e 2021-04-03 2021-04-03 Ronnalyn VFP [place] - [id number] [facility] 00:00:00 00:00:00 Severo [facility] Famil y DIESEL ENGINE ERECTOR: 6122 Medical - Pract ic Peri VM_HOU_East e , [facility] 100, ([facility]) [place] [address] , Ph. 2021-03-31 2021-03-31 Outpatient [facility] [id number] 00:00:00 00:00:[address] 2021-03-26 2021-03-26 Outpatient Sosa-Gor_M VFP VFP [id number] [facility] 07:17:00 07:17:00 [id number] Family Practic e 2021-03-24 2021-03-24 Outpatient Sosa-Gor_M VFP VFP [id number] [facility] 02:37:00 02:37:00 [id number] Family Practic e 2021-03-24 2021-03-24 Adamaris O VFP [place] - [id number] [facility] 00:00:00 00:00:00 PattiJessica [facility] Pau appiah MD: [id number] Medical - Prac tic Shadow VM_HOU_Shad e [place] [facility], [facility] [address] [address] , Ph. 2021-03-24 2021-03-24 Outpatient [facility] [id number] 00:00:00 00:00:[address] 2021-02-14 2021-02-14 Outpatient Sosa-Gor_M_ VFP VFP [id number] [facility] 06:57:00 06:57:00 CHRIS 26744 Family Practic e 2021-02-14 2021-02-14 Outpatient Sosa-Gor_M VFP VFP [id number] [facility] 06:57:00 06:57:00 [id number] Family Practic e 2021-02-14 2021-02-14 Outpatient Sosa-Gor_M VFP VFP [id number] [facility] 06:57:00 06:57:00 [id number] Family Practic e 2021-02-14 2021-02-14 Outpatient Sosa-Gor_M_ VFP VFP [id number] [facility] 06:57:00 06:57:00 HCRIS 93243 Family Practic e 2021-02-14 2021-02-14 Outpatient Sosa-Gor_M_ VFP VFP [id number] [facility] 06:57:00 06:57:00 SIVAN 24586 Family Practic e 2021-01-21 2021-01-21 Outpatient Sosa-Gor_M VFP VFP [id number] [facility] 02:38:00 02:38:00 [id number] Family Practic e 2021-01-18 2021-01-18 Outpatient Sosa-Gor_M VFP VFP [id number] [facility] 02:38:00 02:38:00 [id number] Family Practic e 2021-01-16 2021-01-16 Outpatient Sosa-Gor_M VFP VFP [id number] [facility] 07:35:00 07:35:00 [id number] Family Practic e 2021-01-15 2021-01-15 Outpatient Sosa-Gor_M VFP VFP [id number] [facility] 01:52:00 01:52:00 [id number] Family Practic e 2021-01-14 2021-01-14 Outpatient Sosa-Gor_M VFP VFP [id number] [facility] 03:31:00 03:31:00 [id number] Family Practic e 2021-01-11 2021-01-11 Outpatient Sosa-Gor_M VFP VFP [id number] [facility] 05:20:00 05:20:00 [id number] Family Practic e 2021-01-08 2021-01-08 Outpatient Sosa-Gor_M VFP VFP [id number] [facility] 10:58:00 10:58:00 [id number] Family Practic e 2021-01-04 2021-01-04 Outpatient Sosa-Gor_M VFP VFP [id number] [facility] 08:38:00 08:38:00 [id number] Family Practic e 2021-01-02 2021-01-02 Outpatient Sosa-Gor_M VFP VFP [id number] [facility] 07:11:00 07:11:00 [id number] Family Practic e 2021-01-01 2021-01-01 Outpatient Sosa-Gor_M VFP VFP [id number] [facility] 12:42:00 12:42:00 [id number] Family Practic e 2020-12-31 2020-12-31 Outpatient Sosa-Gor_M VFP VFP [id number] [facility] 09:42:00 09:42:00 [id number] Family Practic e 2020-12-17 2020-12-17 Outpatient Sosa-Gor_M VFP VFP [id number] [facility]202 [facility] 10:45:00 10:45:00 [id number] Family Practic e 2020-12-16 2020-12-16 Outpatient Sosa-Gor_M VFP VFP [id number] [facility]202 [facility] 10:46:00 10:46:00 [id number] Family Practic e 2020-12-14 2020-12-14 Outpatient Sosa-Gor_M VFP VFP [id number] [facility] 01:15:00 01:15:00 [id number] Family Practic e 2020-12-13 2020-12-13 Outpatient Sosa-Gor_M VFP VFP [id number] [facility]202 [facility] 04:53:00 04:53:00 [id number] Family Practic e 2020-12-13 2020-12-13 Adamaris O VFP [place] - [id number] [facility] 00:00:00 00:00:00 Remberto, Gabriella appiah MD: [id number] Medical - Prac tic Shadow VM_CHEU_Ross e [place] [facility], [address], [place] [address] , Ph. 2020-12-11 2020-12-11 Outpatient Sosa-Gor_M VFP VFP [id number] [facility] 04:11:00 04:11:00 [id number] Family Practic e 2020-12-11 2020-12-11 Moni VFP [place] - [id number] V [place] 00:00:00 00:00:00 [facility] bijal Lundy MD: Medical - [facility] [address] [address] VM_HOU_[address], [address] [facility] [address], [place] [address] , Ph. 2020-12-09 2020-12-09 Outpatient JIM [facility] [id number] 00:00:00 00:00:00 HILDA [address] 2020-12-02 2020-12-02 Outpatient JIM [facility] [id number] 00:00:00 00:00:00 HILDA [address] 2020-11-25 2020-11-25 Outpatient JIM [facility] [id number] 00:00:00 00:00:00 HILDA 788 [address] i 2020-11-18 2020-11-18 Outpatient JIM [facility] [id number] 00:00:00 00:00:00 HILDA [address] 2020-11-18 2020-11-18 Outpatient JIM [facility] [id number] 00:00:00 00:00:00 HILDA [address] 2020-10-04 2020-10-04 Outpatient HANSEN, [facility] [id number] 08:08:00 23:59:00 [facility] 2020-10-03 2020-10-03 Outpatient R [facility] [id number] [facility] [place] 10:00:00 10:00:00 [id number] [place] [facility] 2020-09-29 2020-09-29 Outpatient Sosa-Gor_M_ VFP VFP [phone] [facility] 04:39:00 04:39:00 [place] [address] Family Practic e 2020-08-30 2020-08-30 Outpatient Sosa-Gor_M_ VFP VFP [phone] [facility] 11:41:00 11:41:00 WAG [address]67 Family Practic e 2020-08-13 2020-08-13 Outpatient Sosa-Gor_M_ VFP VFP [phone] [facility] 01:03:00 01:03:00 [facility] [address] Family Practic e 2020-08-13 2020-08-13 Outpatient Sosa-Gor_M_ VFP VFP [phone] [facility] 01:03:00 01:03:00 [facility] 14261 Family Practic e 2020-07-15 2020-07-15 Outpatient Sosa-Gor_M_ VFP VFP [phone] [facility] 12:50:00 12:50:00 [facility] 18941 Family Practic e 2020-07-15 2020-07-15 Adamaris O VFP [place] - [id number] [facility] 00:00:00 00:00:00 [facility] Jose Armandoi bijal BLEDSOE: 6122 Medical - Pract [facility] [address], ([facility]) [place] [address] , Ph. 2020-07-11 2020-07-11 Outpatient Sosa-Gor_M_ VFP VFP [phone] [facility] 04:31:00 04:31:00 [facility] [id number] Family Practic e 2020-07-09 2020-07-09 Outpatient Sosa-Gor_M_ VFP VFP [phone] [facility] 01:03:00 01:03:00 [facility] 10842 Family Practic e 2020-06-04 2020-06-04 Outpatient Sosa-Gor_M_ VFP VFP [phone] [facility] 01:03:00 01:03:00 [facility] 51099 Family Practic e 2020-06-04 2020-06-04 Outpatient Sosa-Gor_M VFP VFP [phone] [facility] 01:03:00 01:03:00 [id number] Family Practic e 2020-06-04 2020-06-04 Outpatient Sosa-Gor_M VFP VFP [phone] [facility] 01:03:00 01:03:00 [id number] Family Practic e 2020-06-04 2020-06-04 Outpatient Sosa-Gor_M VFP VFP [phone] [facility] 01:03:00 01:03:00 [id number] Family Practic e 2020-05-28 2020-05-28 Outpatient Sosa-Gor_M VFP VFP [id number] [facility] 09:11:00 09:11:00 [id number] Family Practic e 2020-05-22 2020-05-22 Outpatient Ian-Jessica_M_ VFP VFP [phone] [facility] 12:55:00 12:55:00 [facility] [id number] Family Practic e 2020-05-22 2020-05-22 Miryam VFP [place] - [id number] [facility] 00:00:00 00:00:00 Krzysztof [facility] Elvin, DIESEL ENGINE ERECTOR: Medical - Pra ctic 6122 [facility] ([address] [address] , Ph. 2020-05-01 2020-05-01 Outpatient Sosa-Gor_M_ VFP VFP [phone] [facility] 08:05:00 08:05:00 [facility] 39544 Family Practic e 2020-04-30 2020-04-30 Outpatient Sosa-Jessica_M_ VFP VFP [phone] [facility] 12:20:00 12:20:00 [facility] [id number] Family Practic e 2020-04-30 2020-04-30 Adamaris O VFP [place] - [id number] [facility] 00:00:00 00:00:00 [facility] Jose Armandoi bijal MD: 6122 Medical - Pract [address] [address] , Ph. 2020-03-12 2020-03-12 Outpatient Ian-Jessica_M VFP VFP [id number] [facility] 03:42:00 03:42:00 [id number] Family Practic e 2020-02-13 2020-02-13 Patient Doctor QI [id number] [facility] 00:00:00 00:00:00 Secure Msg Unassigned, HEALTH [id number] ity [place] [id number] [facility] [phone] [facility] 2020-02-13 2020-02-13 Patient Doctor KARRI [id number] Univers 00:00:00 00:00:00 Secure Msg Unassigned, VIVIAN [id number] ity [place] [facility] [id number] [facility] [id number] [address] 2020-02-12 2020-02-12 Outpatient Holly WING [facility] [id number] Univers 08:00:00 08:00:00 ANDREW yao [facility] 2020-02-09 2020-02-09 Outpatient Sosa-Gor_M_ VFP VFP [phone] [place] 12:11:00 12:11:00 SIVAN [address] Family Practic e 2020-02-09 2020-02-09 Outpatient Sosa-Gor_M VFP VFP [phone] [place] 12:11:00 12:11:00 [id number] Family Practic e 2020-02-07 2020-02-07 Outpatient Sosa-Gor_M_ VFP VFP [phone] [place] 03:57:00 03:57:00 CHRIS [address] Family Practic e 2020-02-07 2020-02-07 Adamaris O VFP [place] - [id number] [facility] 00:00:00 00:00:00 Remberto, [facility] Jose Armando bijal BLEDSOE: 6122 Medical - Pract [facility], [place] [address], ([facility]) [place] [address] , Ph. 2019-10-11 2019-10-11 Outpatient Sosa-Gor_M_ VFP VFP [phone] [facility] 01:08:00 01:08:00 CHRIS 31077 Family Practic e 2019-09-26 2019-09-26 Outpatient Sosa-Gor_M VFP VFP [phone] [place] 02:03:00 02:03:00 [id number] Family Practic e 2019-09-26 2019-09-26 Outpatient Sosa-Gor_M VFP VFP [id number] [facility] 02:03:00 02:03:00 26396 Family Practic e 2019-09-26 2019-09-26 Outpatient Sosa-Gor_M VFP VFP [id number] [place] 02:03:00 02:03:00 21066 Family Practic e 2019-09-26 2019-09-26 Outpatient Sosa-Gor_M VFP VFP [phone] [place] 02:03:00 02:03:00 03418 Family Practic e 2019-09-26 2019-09-26 Outpatient Sosa-Gor_M VFP VFP [phone] [facility] 02:03:00 02:03:00 [id number] Family Practic e 2019-09-26 2019-09-26 Outpatient IsaelM VFP VFP [phone] [facility] 02:03:00 02:03:00 [id number] Family Practic e 2019-09-22 2019-09-22 Outpatient Sulaiman_ VFP VFP [phone] [facility] 02:37:00 02:37:00 [facility] 59556 Family Practic e 2019-09-22 2019-09-22 Adamaris O VFP [place] - [id number] [facility] 00:00:00 00:00:00 Remberto [facility] Pau appiah MD: 6122 Medical - Pract [facility], [facility] [address], ([facility]) [place] [address] , Ph. 2019-09-12 2019-09-12 Outpatient Sulaiman VFP VFP [phone] [facility] 04:00:00 04:00:00 [id number] Family Practic e 2019-06-30 2019-06-30 Adamaris O VFP [place] - [id number] [facility] 00:00:00 00:00:00 Remberto [facility] Pau appiah MD: 9430 Family Practic [place], Practice - [address], V[place]-[facility] [address] , Ph. 2019-04-06 2019-04-06 Adamaris O VFP [place] - [id number] [facility] 00:00:00 00:00:00 Remberto [facility] Pau appiah MD: 9430 Family Practic [address]i, Practice - e [address], [facility] [address] , Ph. 2018-10-25 2018-10-25 Adamaris O VFP [place] - [id number] [facility] 00:00:00 00:00:00 Gabriella Sr Pau appiah MD: 94[address] Family Practic [address], Practice - e [address], [place] [address] , Ph. Results Test Description Test Time Test Comments Results Result Comments Source Parathyrin.intact [Mass/volume] in Serum or Plasma 2021-09-23 5 00:00:00 Test Item Value Reference Range Interpretation Comme nts parathyroid hormone, intact (test code = parathyroid hormone, 21 pg /mL 14-64 intact) [facility] - Serum or Plasma 2021-10-06 00:00:00 Test Item Value Reference Range Interpretation Comments ALT (test code = ALT) 32 U/L 0-55 AST (test code = AST) 25 U/L 5-34 BUN (test code = BUN) 8.8 mg/dL 9.8-25.0 L alk phos (test code = alk phos) 60 unit/L 40-150 glucose (test code = glucose) 124 mg/dL 70-99 H albumin (test code = albumin) 4.1 g/dL 3.4-5.1 creatinine (test code = 0.82 mg/dL 0.57-1.11 creatinine) eGFR non- (test >60 code = eGFR non-) total bilirubin (test code = 0.4 mg/dL 0.2-1.2 total bilirubin) eGFR - (test >60 code = eGFR - ) sodium (test code = sodium) 138 mEq/L 135-145 potassium (test code = potassium) 4.2 mEq/L 3.5-5.3 chloride (test code = chloride) 102 mmol/L 98-110 total protein (test code = total 6.7 g/dL 6.1-8.2 protein) calcium (test code = calcium) 9.7 mg/dL 8.4-10.4 CO2 (test code = CO2) 24.2 mmol/L 20.0-32.0 anion gap (test code = anion gap) 12 calc [facility] panel - Serum or [id number] 00:00:00 Test Item Value Reference Range Interpretation Comments HDL (test code = HDL) 40 mg/dL L triglyceride (test code = 254 mg/dL <150 H triglyceride) VLDL (calculated) (test code = VLDL 51 mg/dL (calculated)) cholesterol/HDL ratio (test code = 3.5 mg/dL cholesterol/HDL ratio) non-HDL cholesterol (calculated) 101 mg/dL <160 (test code = non-HDL cholesterol (calculated)) cholesterol (test code = 141 mg/dL <200 cholesterol) Cholesterol in LDL [Mass/volume] in 50 mg/dL <130 Serum or Plasma (test code = 2089-1) [facility] [Mass Ratio] in [id number] 00:00:00 Test Item Value Reference Range Interpretation Comments microalbumin random urine 663 ug/mL (test code = microalbumin random urine) creatinine random urine 70.5 mg/dL 20.0-320.0 (test code = creatinine random urine) microalbumin/creatinine 941 mcg/mg creat H (random urine) ratio calculated (test code = microalbumin/creatinine (random urine) ratio calculated) [facility] 1999 panel - Serum or Plasma 2021-10-06 00:00:00 Test Item Value Reference Range Interpretation Comments ALT (test code = ALT) 32 U/L 0-55 AST (test code = AST) 25 U/L 5-34 BUN (test code = BUN) 8.8 mg/dL 9.8-25.0 L alk phos (test code = alk phos) 60 unit/L 40-150 glucose (test code = glucose) 124 mg/dL 70-99 H albumin (test code = albumin) 4.1 g/dL 3.4-5.1 creatinine (test code = 0.82 mg/dL 0.57-1.11 creatinine) eGFR non- (test >60 code = eGFR non-) total bilirubin (test code = 0.4 mg/dL 0.2-1.2 total bilirubin) eGFR - (test >60 code = eGFR - ) sodium (test code = sodium) 138 mEq/L 135-145 potassium (test code = potassium) 4.2 mEq/L 3.5-5.3 chloride (test code = chloride) 102 mmol/L 98-110 total protein (test code = total 6.7 g/dL 6.1-8.2 protein) calcium (test code = calcium) 9.7 mg/dL 8.4-10.4 CO2 (test code = CO2) 24.2 mmol/L 20.0-32.0 anion gap (test code = anion gap) 12 calc [facility] panel - Serum or [id number] 00:00:00 Test Item Value Reference Range Interpretation Comments HDL (test code = HDL) 40 mg/dL L triglyceride (test code = 254 mg/dL <150 H triglyceride) VLDL (calculated) (test code = VLDL 51 mg/dL (calculated)) cholesterol/HDL ratio (test code = 3.5 mg/dL cholesterol/HDL ratio) non-HDL cholesterol (calculated) 101 mg/dL <160 (test code = non-HDL cholesterol (calculated)) cholesterol (test code = 141 mg/dL <200 cholesterol) Cholesterol in LDL [Mass/volume] in 50 mg/dL <130 Serum or Plasma (test code = 2089-1) [facility] [Mass Ratio] in [id number] 00:00:00 Test Item Value Reference Range Interpretation Comments microalbumin random urine 663 ug/mL (test code = microalbumin random urine) creatinine random urine 70.5 mg/dL 20.0-320.0 (test code = creatinine random urine) microalbumin/creatinine 941 mcg/mg creat H (random urine) ratio calculated (test code = microalbumin/creatinine (random urine) ratio calculated) [facility] W Auto Differential panel - [id number] 00:00:00 Test Item Value Reference Range Interpretation Comments WBC (test code = WBC) 8.49 x10*3/?L 4.00-11.00 RBC (test code = RBC) 4.61 10*12/L 3.93-5.22 hemoglobin (test code = 12.50 g/dL 11.20-15.70 hemoglobin) hematocrit (test code = 39.7 % 34.1-44.9 hematocrit) MCV (test code = MCV) 86.1 fL 80.0-100.0 MCH (test code = MCH) 27.1 pg 25.6-32.2 MCHC (test code = MCHC) 31.5 g/dL 32.2-35.5 L RDW-SD (test code = RDW-SD) 42.5 fL 36.4-46.3 platelet count (test code = 277.0 k/uL 150.0-400.0 platelet count) MPV (test code = MPV) 9.6 fL 7.5-11.5 neut% (test code = neut%) 67.4 % 34.0-71.1 lymph% (test code = lymph%) 24.0 % 19.3-51.7 mon% (test code = mon%) 7.3 % 4.7-12.5 eos% (test code = eos%) 0.4 % 0.7-5.8 L baso% (test code = baso%) 0.4 % 0.1-1.2 neut# (test code = neut#) 5.7 x10*3/?L 1.6-6.1 lymph# (test code = lymph#) 2.0 x10*3/?L 1.2-3.7 mon# (test code = mon#) 0.6 x10*3/?L 0.2-0.9 eos# (test code = eos#) 0.03 x10*3/?L 0.04-0.36 L baso# (test code = baso#) 0.03 x10*3/?L 0.01-0.08 [facility] A[facility]c/Hemoglobin.total in [id number] 00:00:00 Test Item Value Reference Range Interpretation Comments Hemoglobin A1c/Hemoglobin.total in 7.7 % 1.0-5.7 H Blood (test code = 4548-4) average blood glucose (calculation) 174 mg/dL (test code = average blood glucose (calculation)) [facility] W Auto Differential panel - [id number] 00:00:00 Test Item Value Reference Range Interpretation Comments WBC (test code = WBC) 8.49 x10*3/?L 4.00-11.00 RBC (test code = RBC) 4.61 10*12/L 3.93-5.22 hemoglobin (test code = 12.50 g/dL 11.20-15.70 hemoglobin) hematocrit (test code = 39.7 % 34.1-44.9 hematocrit) MCV (test code = MCV) 86.1 fL 80.0-100.0 MCH (test code = MCH) 27.1 pg 25.6-32.2 MCHC (test code = MCHC) 31.5 g/dL 32.2-35.5 L RDW-SD (test code = RDW-SD) 42.5 fL 36.4-46.3 platelet count (test code = 277.0 k/uL 150.0-400.0 platelet count) MPV (test code = MPV) 9.6 fL 7.5-11.5 neut% (test code = neut%) 67.4 % 34.0-71.1 lymph% (test code = lymph%) 24.0 % 19.3-51.7 mon% (test code = mon%) 7.3 % 4.7-12.5 eos% (test code = eos%) 0.4 % 0.7-5.8 L baso% (test code = baso%) 0.4 % 0.1-1.2 neut# (test code = neut#) 5.7 x10*3/?L 1.6-6.1 lymph# (test code = lymph#) 2.0 x10*3/?L 1.2-3.7 mon# (test code = mon#) 0.6 x10*3/?L 0.2-0.9 eos# (test code = eos#) 0.03 x10*3/?L 0.04-0.36 L baso# (test code = baso#) 0.03 x10*3/?L 0.01-0.08 [facility] Center[facility]em[facility] A1c/Hemoglobin.total in [id number] 00:00:00 Test Item Value Reference Range Interpretation Comments Hemoglobin A1c/Hemoglobin.total in 7.7 % 1.0-5.7 H Blood (test code = 4548-4) average blood glucose (calculation) 174 mg/dL (test code = average blood glucose (calculation)) [facility] [Presence] in Respiratory specimen by PAULETTE with probe [id number] 21:42:21 Test Item Value Reference Range Interpretation Comments SARS-CoV-2 (COVID-19) RNA Not detected Not-Detected [Presence] in Respiratory specimen by PAULETTE with probe detection (test code = 38428-3) Whether patient is employed in a healthcare setting (test code = 46343-1) Whether the patient has symptoms related to condition of interest (test code = 85572-4) Patient was hospitalized because of this condition (test code = 82108-3) Whether the patient was admitted to intensive care unit (ICU) for condition of interest (test code = 82662-0) Whether patient resides in a congregate care setting (test code = 07886-7) Parathyrin.intact [Mass/volume] in Serum or [id number] 13:42:00 Test Item Value Reference Range Interpretation Comments parathyroid hormone, intact (test 24 pg/mL 14-64 code = parathyroid hormone, intact) [facility] Center[facility] A1c/Hemoglobin.total in [id number] 16:26:00 Test Item Value Reference Range Interpretation Comments Hemoglobin A1c/Hemoglobin.total in 6.7 % 1.0-5.7 H Blood (test code = 4548-4) average blood glucose (calculated) 146 mg/dL (test code = average blood glucose (calculated)) [facility] 1999 panel - Serum or Plasma 2020-07-16 15:29:00 Test Item Value Reference Range Interpretation Comments ALT (test code = ALT) 23 U/L 0-55 AST (test code = AST) 26 U/L 5-34 BUN (test code = BUN) 11.2 mg/dL 9.8-25.0 alk phos (test code = alk phos) 69 unit/L 40-150 glucose (test code = glucose) 96 mg/dL 70-99 albumin (test code = albumin) 4.1 g/dL 3.4-5.1 creatinine (test code = 0.82 mg/dL 0.57-1.11 creatinine) eGFR non- (test >60 code = eGFR non-) total bilirubin (test code = 0.5 mg/dL 0.2-1.2 total bilirubin) eGFR - (test >60 code = eGFR - ) sodium (test code = sodium) 138 mEq/L 135-145 potassium (test code = potassium) 4.6 mEq/L 3.5-5.3 chloride (test code = chloride) 101 mmol/L 98-110 total protein (test code = total 7.0 g/dL 6.1-8.2 protein) calcium (test code = calcium) 9.9 mg/dL 8.6-10.4 CO2 (test code = CO2) 28.6 mmol/L 20.0-32.0 anion gap (test code = anion gap) 8 calc [facility] 1995 panel - Serum or [id number] 15:29:00 Test Item Value Reference Range Interpretation Comments HDL (test code = HDL) 61 mg/dL triglyceride (test code = 236 mg/dL <150 H triglyceride) VLDL (calculated) (test code = VLDL 47 mg/dL (calculated)) cholesterol/HDL ratio (test code = 3.4 mg/dL cholesterol/HDL ratio) non-HDL cholesterol (calculated) 145 mg/dL <160 (test code = non-HDL cholesterol (calculated)) cholesterol (test code = 206 mg/dL <200 H cholesterol) Cholesterol in LDL [Mass/volume] in 98 mg/dL <130 Serum or Plasma (test code = 2089-1) [facility] Centeriron + TIBC + ferritin, [id number] 11:10:00 Test Item Value Reference Range Interpretation Comments iron bind.cap.(TIBC) (test code = 380 ug/dL 250-450 iron bind.cap.(TIBC)) UIBC (test code = UIBC) 349 ug/dL 131-425 iron (test code = iron) 31 ug/dL 27-159 iron saturation (test code = iron 8 % 15-55 L saturation) ferritin, serum (test code = 8 NG/mL 15-150 L ferritin, serum) [facility] Auto Differential panel - [id number] 11:10:00 Test Item Value Reference Range Interpretation Comments WBC (test code = WBC) 5.9 x10e3/uL 3.4-10.8 RBC (test code = RBC) 4.54 x10e6/uL 3.77-5.28 hemoglobin (test code = 10.8 g/dL 11.1-15.9 L hemoglobin) hematocrit (test code = 36.6 % 34.0-46.6 hematocrit) MCV (test code = MCV) 81 fL 79-97 MCH (test code = MCH) 23.8 pg 26.6-33.0 L MCHC (test code = MCHC) 29.5 g/dL 31.5-35.7 L RDW (test code = RDW) 15.9 % 12.3-15.4 H platelets (test code = 258 x10e3/uL 150-450 platelets) neutrophils (test code = 66 % not estab. neutrophils) lymphs (test code = lymphs) 28 % not estab. monocytes (test code = 6 % not estab. monocytes) eos (test code = eos) 0 % not estab. basos (test code = basos) 0 % not estab. immature cells (test code = comment immature cells) neutrophils (absolute) (test 3.9 x10e3/uL 1.4-7.0 code = neutrophils (absolute)) lymphs (absolute) (test code = 1.7 x10e3/uL 0.7-3.1 lymphs (absolute)) monocytes(absolute) (test code 0.3 x10e3/uL 0.1-0.9 = monocytes(absolute)) eos (absolute) (test code = eos 0.0 x10e3/uL 0.0-0.4 (absolute)) baso (absolute) (test code = 0.0 x10e3/uL 0.0-0.2 baso (absolute)) immature granulocytes (test 0 % not estab. code = immature granulocytes) immature grans (abs) (test code 0.0 x10e3/uL 0.0-0.1 = immature grans (abs)) hematology comments: (test code comment = hematology comments:) [facility] 2000 panel - Serum or Plasma 2019-06-01 11:10:00 Test Item Value Reference Range Interpretation Comments glucose (test code = glucose) 140 mg/dL 65-99 H BUN (test code = BUN) 11 mg/dL 6-24 creatinine (test code = 0.73 mg/dL 0.57-1.00 creatinine) eGFR if nonafricn AM (test 91 mL/min/1.73 >59 code = eGFR if nonafricn AM) eGFR if africn AM (test code 105 mL/min/1.73 >59 = eGFR if africn AM) BUN/creatinine ratio (test 15 - code = BUN/creatinine ratio) sodium (test code = sodium) 139 mmol/L 134-144 potassium (test code = 4.6 mmol/L 3.5-5.2 potassium) chloride (test code = 97 mmol/L 96-106 chloride) carbon dioxide, total (test 23 mmol/L 20-29 code = carbon dioxide, total) calcium (test code = calcium) 9.7 mg/dL 8.7-10.2 protein, total (test code = 7.0 g/dL 6.0-8.5 protein, total) albumin (test code = albumin) 4.4 g/dL 3.5-5.5 globulin, total (test code = 2.6 g/dL 1.5-4.5 globulin, total) A/G ratio (test code = A/G 1.7 1.2-2.2 ratio) bilirubin, total (test code = 0.3 mg/dL 0.0-1.2 bilirubin, total) alkaline phosphatase (test 79 IU/L 39-117 code = alkaline phosphatase) AST (SGOT) (test code = AST 20 IU/L 0-40 (SGOT)) ALT (SGPT) (test code = ALT 18 IU/L 0-32 (SGPT)) [facility] 1996 panel - Serum or [id number] 11:10:00 Test Item Value Reference Range Interpretation Comments cholesterol, total (test code = 147 mg/dL 100-199 cholesterol, total) triglycerides (test code = 215 mg/dL 0-149 H triglycerides) HDL cholesterol (test code = HDL 51 mg/dL >39 cholesterol) VLDL cholesterol raymon (test code = 43 mg/dL 5-40 H VLDL cholesterol raymon) Cholesterol in LDL [Mass/volume] in 53 mg/dL 0-99 Serum or Plasma (test code = 2089-1) [facility] CenterHemoglobin A1c/Hemoglobin.total in [id number] 11:10:00 Test Item Value Reference Range Interpretation Comments Hemoglobin A1c/Hemoglobin.total in 7.1 % 4.8-5.6 H Blood (test code = 4548-4) estim. avg glu (EAG) (test code = 157 mg/dL estim. avg glu (EAG)) [facility] CAD [id number] 09:45:23 - SCR MAMM BILATERAL RAYMOND CAD DIGITALBILATERAL DIGITAL SCREENING MAMMOGRAM 3D/2D WITH CAD: 05/18/2019CLINICAL: Asymptomatic. Digital breast tomosynthesis was performed in addition to routine CC and MLO views. Current mammographic images were evaluated by either a [employer] M-Vu or a [employer] ImageChecker CAD (computer aided detection system). Comparison is made to exams dated 03/31/2018 mammogram - [facility], 02/11/2017 mammogram, and 11/13/2015 mammogram - [facility]. The tissue of both breasts is predominantly fatty. There are benign calcifications in the left breast. No suspicious mass, architectural distortion, malignant type calcification, or lymph node abnormality detected. Breast architecture is stable compared to prior exams.IMPRESSION: BENIGNThere is no mammographicevidence of malignancy. Resume annual screening mammography in one year. Kenia Tipton M.D. dm/penrad:05/18/2019 09:45:23 copy to: Adamaris Sr MD, ph: [phone], fax: [phone] Technologist: Gretel ORTIZ, [facility]letter sent: BIRADS 1-2 Normal Mammogram BI-RADS: 2 BenignCT, BRAIN, WITHOUT [id number] 15:02:00FINAL REPORT CT head without contrast 07/02/2017 3:01 [...] is no CT evidence for cerebral infarction. Thevisualized paranasal sinuses and mastoid air cells are well aerated. The skull is intact. IMPRESSION: No intracranial hemorrhage or mass effect. If concern for acute pathology persists, further evaluation with MRI is recommended. Signed: Bob Stubbs Verified Date/Time: 07/02/2017 15:02:39 Reading Location: [facility] Radiology Reading Room
[2021-11-08] MEDS ORDERED: HYDROCODONE/APAP 10/325 TAB ONE (12:52)
--- NOTE | 2021-11-08 14:06 | RAD REPORT ---
EXAM DESCRIPTION: RAD - Knee Left 3 View - 11/08/2021 1:44 pm CLINICAL HISTORY: PAIN COMPARISON: No comparisons FINDINGS: A knee effusion is present. No definite fracture is seen. Medial compartment spurring. IMPRESSION: No fractures identified. A moderate knee effusion is noted. Cannot exclude a radiographi letty occult fracture. Could consider CT.
--- NOTE | 2021-11-08 14:08 | RAD REPORT ---
EXAM DESCRIPTION: US - Extremity Venous Uni Ltd - 11/08/2021 2:01 pm CLINICAL HISTORY: Left knee pain COMPARISON: None. TECHNIQUE: Real-time sonographic evaluation of the left lower extremity deep venous system was perfo rmed. FINDINGS: Normal compressibility, flow augmentation, phasic flow and spontaneous flow is identified in the left lower extremity deep venous system. No intraluminal filling defects seen. IMPRESSION: No DVT in the left lower extremity.
--- NOTE | 2021-11-08 14:30 | ER ---
Nurse's Notes [facility] Name: Tracy Carballo Age: 61 yrs Sex: Female : 1960 Arrival Date: 11/08/2021 Time: 12:07 Bed 15 Private MD: Diagnosis: Pain in left knee;Effusion, left knee Presentation: 11/08 12:23 Chief complaint: Patient states: had sx on Left hamstring in March of 2021; and vg1 receives injections to left knee; states x 3 days ago was doing yard work and then noticed Left leg and Left foot swelling. Coronavirus screen: Vaccine status: Patient reports receiving the 2nd dose of the covid vaccine. Client denies travel out of the [place] in the last 14 days. At this time, the client does not indicate any symptoms associated with coronavirus-19. Ebola Screen: Patient negative for fever greater than or equal to 101.5 degrees Fahrenheit, and additional compatible Ebola Virus Disease symptoms. Initial Sepsis Screen: Does the patient meet any 2 criteria? No. Patient's initial sepsis screen is negative. Does the patient have a suspected source of infection? No. Patient's initial sepsis screen is negative. Risk Assessment: Do you want to hurt yourself or someone else? Patient reports no desire to harm self or others. Onset of symptoms was November 05, 2021. 12:23 Method Of Arrival: Wheelchair vg1 12:23 Acuity: MIKE 3 vg1 Triage Assessment: 12:29 General: Appears in no apparent distress. uncomfortable, Behavior is calm, cooperative. vg1 Pain: Complains of pain in left leg. Historical: - Home Meds: 12:28 atorvastatin 20 mg Oral tab [Active]; Effexor XR 150 mg Oral cp24 1 cap once daily vg1 [Active]; omeprazole 40 mg Oral cpDR 1 cap once daily [Active]; olmesartan Oral [Active]; Janumet 50-1,000 mg Oral tab 1 tab 2 times per day [Active]; 12:29 Cipro Oral [Active]; Metronidazole Oral [Active]; vg1 - PMHx: 12:28 Hypertension; vg1 - PSHx: 12:28 Left Hamstring; vg1 - Immunization history:: Client reports receiving the 2nd dose of the Covid vaccine. - Social history:: Smoking status: Patient reports the use of cigarette tobacco products, denies chronic smoking, but will smoke occasionally. Screenin:01 Abuse screen: Denies threats or abuse. Denies injuries from another. Nutritional ic1 screening: No deficits noted. Tuberculosis screening: No symptoms or risk factors identified. Fall Risk No fall in past 12 months (0 pts). Secondary diagnosis (15 points) No IV (0 pts). Ambulatory Aid- Crutches/Cane/Walker (15 pts). Gait- Weak (10 pts.). Mental Status- Oriented to own ability (0 pts). Total Blanco Fall Scale indicates Low Risk Score (25-44 pts). Side Rails Up X 2 Placed close to Nursing Station Frequent Obs/Assesments occuring As available Patient and Family Educated on Fall Prevention Program and strategies. Assessment: 13:02 General: Appears in no apparent distress. Behavior is calm, cooperative. Pain: ic1 Complains of pain in left leg. Neuro: Level of Consciousness is awake, alert, obeys commands, Oriented to person, place, time, situation. Cardiovascular: No deficits noted. Respiratory: No deficits noted. GI: No deficits noted. : No deficits noted. EENT: No deficits noted. Derm: No deficits noted. Musculoskeletal: Reports pain in left leg. Vital Signs: 12:23 BP 131 / 80; Pulse 89; Resp 17; Temp 98.4; Pulse Ox 100% ; Weight 77.11 kg; Height 5 vg1 ft. 8 in. (172.72 cm); Pain 9/10; 14:54 BP 123 / 79; Pulse 84; Resp 18; Pulse Ox 99% on R/A; ic1 12:23 Body Mass Index 25.85 (77.11 kg, 172.72 cm) vg1 ED Course: 12:07 Patient arrived in ED. ja2 12:27 Triage completed. vg1 12:29 Arm band placed on. vg1 12:31 Amada Elkins FNP-C is [facility]. kb 12:31 Brayan Nunez MD is Attending Physician. kb 12:44 Luana Cox, SRAVANTHI is Primary Nurse. ic1 13:01 Patient has correct armband on for positive identification. Bed in low position. Call ic1 light in reach. Side rails up X2. 13:01 No provider procedures requiring assistance completed. ic1 13:44 Knee Left 3 View XRAY In Process Unspecified. EDMS 14:01 US Extremity Venous Unilateral Ltd In Process Unspecified. EDMS 14:54 Patient did not have IV access during this emergency room visit. ic1 Administered Medications: 12:59 Drug: [place] (HYDROcodone-acetaminophen) 10 mg-325 mg 1 tabs Route: PO; ic1 Outcome: 14:30 Discharge ordered by . abdirahman 14:54 Discharged to home ambulatory. ic1 14:54 Discharged to home via wheelchair. 14:54 Condition: good 14:54 Discharge instructions given to patient, Instructed on discharge instructions, follow up and referral plans. Demonstrated understanding of instructions, follow-up care, medications, Prescriptions given X 1. 15:15 Patient left the ED. ic1 Signatures: Dispatcher [employer] Amada Palomino, LITHOGRAPHIC PRINTING MACHINIST-C LITHOGRAPHIC PRINTING MACHINIST-Michell Antonio, RN RN vg1 Lakia Ovalle Iesha, RN RN ic1
--- NOTE | 2021-11-08 14:31 | EDPHYS ---
Physician Documentation [facility] Name: Tracy Carballo Age: 61 yrs Sex: Female : 1960 Arrival Date: 11/08/2021 Time: 12:07 Bed 15 Private MD: ED Physician Brayan Nunez HPI: 11/08 13:02 This 61 yrs old Female presents to ER via Wheelchair with complaints of POSSIBLE kb INFECTION. 13:02 The patient presents with pain, that is acute, swelling, tenderness. The complaints kb affect the left knee. Context: The problem was sustained at home, resulted from an unknown cause, the patient can partially bear weight, must have assistance, Problem is a result from a previous injury: No. Severity of symptoms: At their worst the symptoms were moderate, in the emergency department the symptoms are unchanged. The patient has not experienced similar symptoms in the past. The patient has not recently seen a physician. 13:03 Onset: The symptoms/episode began/occurred 4 day(s) ago. Modifying factors: The kb symptoms are alleviated by nothing. the symptoms are aggravated by movement, weight bearing, bending knee. Associated signs and symptoms: Pertinent positives: swelling, Pertinent negatives calf tenderness, fever, nausea, numbness, rash, tingling, vomiting, warmth, weakness. Treatment prior to arrival includes: no previous treatment. Pt reports left knee pain and swelling that started on Wednesday. States she has had no injury, then kneeled to do garden work a few days later and the pain got worse. States she made an appt with Dr Garrido, but it isn't until November 24 so she came here to get an MRI. Historical: - Home Meds: 12:28 atorvastatin 20 mg Oral tab [Active]; Effexor XR 150 mg Oral cp24 1 cap once daily vg1 [Active]; omeprazole 40 mg Oral cpDR 1 cap once daily [Active]; olmesartan Oral [Active]; Janumet 50-1,000 mg Oral tab 1 tab 2 times per day [Active]; 12:29 Cipro Oral [Active]; Metronidazole Oral [Active]; vg1 - PMHx: 12:28 Hypertension; vg1 - PSHx: 12:28 Left Hamstring; vg1 - Immunization history:: Client reports receiving the 2nd dose of the Covid vaccine. - Social history:: Smoking status: Patient reports the use of cigarette tobacco products, denies chronic smoking, but will smoke occasionally. ROS: 13:01 Constitutional: Negative for fever, chills, and weight loss. kb 13:01 MS/extremity: Positive for pain, swelling, tenderness, of the left knee. 13:01 All other systems are negative. Exam: 13:01 Constitutional: This is a well developed, well nourished patient who is awake, alert, kb and in no acute distress. Head/Face: Normocephalic, atraumatic. ENT: Moist Mucous membranes Respiratory: Respirations even and unlabored. No increased work of breathing. Talking in full sentences Skin: Warm, dry with normal turgor. Normal color. Neuro: Awake and alert, GCS 15, oriented to person, place, time, and situation. Moves all extremities. Normal gait. Psych: Awake, alert, with orientation to person, place and time. Behavior, mood, and affect are within normal limits. 13:01 Musculoskeletal/extremity: Extremities: grossly normal except: noted in the left knee: pain, swelling, tenderness, There is no evidence of erythema, ROM: limited active range of motion due to pain, in the left knee, Circulation is intact in all extremities. Sensation intact. Weight bearing: can bear weight with assistance only. Vital Signs: 12:23 BP 131 / 80; Pulse 89; Resp 17; Temp 98.4; Pulse Ox 100% ; Weight 77.11 kg; Height 5 vg1 ft. 8 in. (172.72 cm); Pain 9/10; 14:54 BP 123 / 79; Pulse 84; Resp 18; Pulse Ox 99% on R/A; ic1 12:23 Body Mass Index 25.85 (77.11 kg, 172.72 cm) vg1 MDM: 12:31 Patient medically screened. kb 13:00 Data reviewed: vital signs, nurses notes. Data interpreted: Pulse oximetry: on room air kb is 100 %. Interpretation: normal. 14:13 Counseling: I had a detailed discussion with the patient and/or guardian regarding: the kb historical points, exam findings, and any diagnostic results supporting the discharge/admit diagnosis, radiology results, the need for outpatient follow up, a orthopedic surgeon, to return to the emergency department if symptoms worsen or persist or if there are any questions or concerns that arise at home. 11/08 12:41 Order name: Knee Left 3 View XRAY; Complete Time: 14:13 kb 11/08 12:41 Order name: US Extremity Venous Unilateral Ltd; Complete Time: 14:13 kb 11/08 14:30 Order name: Cong Wrap kb Administered Medications: 12:59 Drug: [place] (HYDROcodone-acetaminophen) 10 mg-325 mg 1 tabs Route: PO; ic1 Disposition Summary: 11/08/21 14:30 Discharge Ordered Location: Home kb Condition: Stable kb Diagnosis - Pain in left knee kb - Effusion, left knee kb Followup: kb - With: Emergency Department - When: As needed - Reason: Worsening of condition Followup: kb - With: Private Physician - When: 2 - 3 days - Reason: Recheck today's complaints, Continuance of care, Re-evaluation by your physician Discharge Instructions: - Discharge Summary Sheet kb - Knee Effusion, [id number] kb - Acute Knee Pain, Adult, [id number] kb Forms: - Medication Reconciliation Form kb - Thank You Letter kb - Antibiotic Education kb - Prescription Opioid Use kb Prescriptions: - Diclofenac Sodium 75 mg Oral tablet,delayed release (DR/EC) - take 1 tablet by ORAL route 2 times per day As needed; 30 tablet; Refills: 0, kb Product Selection Permitted Signatures: Dispatcher [employer] Amada Palomino FNP-C FNP-Michell Antonio, RN RN vg1 Luana Cox RN RN ic1
[2021-11-08 15:34] VITALS: TEMP 98.4
[2021-11-08 15:35] VITALS: BP 123/79; O2SAT 99
== END 2021-11-08 15:15 | disposition home or self-care (01) ==
LOC: ER 12:04
DX: M25.462 Effusion, left knee (principal); I10 Essential (primary) hypertension; F17.210 Nicotine dependence, cigarettes, uncomplicated
CPT/HCPCS: 93971; 99283